=== PATIENT | female | born 1945 | race Hispanic/Latino ===

== ENCOUNTER 2017-12-12 14:52 | Inpatient (IN) | payer MEDICARE ==
[2017-12-12 15:01] VITALS: BMI 25.3
[2017-12-12] MEDS ORDERED: Levalbuterol 1.25 MG/3 ML Inhal Soln UD IH STA ×3 (15:11→16:06)
[2017-12-12 15:57] LABS: BASO # 0.01 K/mm3 (0.0-2.0); EOS # 0.2 (0.0-0.7); EOS % 0.7 % (1.5-5.0); GRAN # 19.02 (1.4-6.5); GRAN % 88.9 % (50.0-68.0); HEMOGLOBIN 15.7 g/dL (12.0-16.0); LYMPH % 4.8 % (22.0-35.0); MEAN CELL VOLUME 93.1 fl (80.0-105.0); MEAN CORPUSCULAR HGB CONC 33.3 g/dl (31.0-37.0); MEAN PLATELET VOLUME 9.4 fl (7.0-11.0); MONO # 1.2 (0.1-0.6); MONO % 5.6 % (1.0-6.0); PLATELET COUNT 369 10^3/uL (120.0-450.0); RBC 5.07 10^6/uL (3.5-6.1); WHITE BLOOD COUNT 21.4 10^3/ul (4.5-11.0)
[2017-12-12 15:58] LABS: VENOUS BLOOD GAS BASE EXCESS 2.8 mmol/L (0.0-2.0); VENOUS BLOOD GAS PO2 106 mm/Hg (30-55); VENOUS BLOOD PH 7.28 (7.32-7.43)
[2017-12-12 16:07] LABS: ALB/GLOB RATIO 1.1 (1.1-1.8); ALBUMIN 3.6 g/dL (3.0-4.8); ALT/SGPT 19 U/L (7-56); AST/SGOT 16 U/L (14-36); BLOOD UREA NITROGEN 30 mg/dL (7-21); CALCIUM 9.2 mg/dL (8.4-10.5); GFR AFRICAN-AMERICAN 59; GFR NON-AFRICAN AMERICAN 49
[2017-12-12 16:09] LABS: INR 1.33 (0.93-1.08); PARTIAL THROMBOPLASTIN TIME 27.6 Seconds (25.1-36.5); PROTHROMBIN TIME 15.3 SECONDS (9.4-12.5)
[2017-12-12 16:19] LABS: B-TYPE NATRIURETIC PEPTIDE 7220 pg/mL (0-450); TROPONIN I < 0.01 ng/mL
--- NOTE | 2017-12-12 16:23 | RAD ---
HISTORY: Shortness of breath. COMPARISON: 08/04/2016 FINDINGS: LUNGS: Bilateral lower lobe infiltrates and new finding compared to the prior study. PLEURA: No significant pleural effusion identified, no pneumothorax apparent. CARDIOVASCULAR: Pulmonary vascular congestion noted. OSSEOUS STRUCTURES: No significant abnormalities. VISUALIZED UPPER ABDOMEN: Normal. OTHER FINDINGS: None. IMPRESSION: Pulmonary vascular congestion. Lower lobe infiltrates including retrocardiac. These are new findings.
--- NOTE | 2017-12-12 16:25 | ED PDOC ---
Arrival/HPI - General Chief Complaint: Shortness Of Breath Time Seen by Provider: 12/12/17 15:09 - History of Present Illness Narrative History of Present Illness (Text): 12/12/17 16:17 72yo female with PMhx of COPD, hypothyroid, hypertension, CAD with cardiac stents bib EMS for worsening SOB x 2weeks. She denies chest pain, fever, chills , calf pain, cough, any other complaint. Past Medical History - Provider Review Nursing Documentation Reviewed: Yes - Infectious Disease Hx of Infectious Diseases: None - Cardiac Hx Cardiac Disorders: Yes Hx Hypertension: Yes - Pulmonary Hx Respiratory Disorders: Yes Hx Emphysema: Yes - Endocrine/Metabolic Hx Hypothyroidism: Yes - Musculoskeletal/Rheumatological Hx Falls: No - Psychiatric Hx Substance Use: No - Surgical History Hx Cardiac Catheterization: Yes Hx Coronary Stent: Yes - Anesthesia Hx Anesthesia: Yes Hx Anesthesia Reactions: No Hx Malignant Hyperthermia: No Family/Social History - Physician Review Nursing Documentation Reviewed: Yes Family/Social History: Unknown Family HX Smoking Status: Former Smoker Hx Alcohol Use: No Hx Substance Use: No Allergies/Home Meds Allergies/Adverse Reactions: Allergies Penicillins Allergy (Verified 08/04/16 11:16) ANAPHYLAXIS shellfish derived Allergy (Verified 08/04/16 11:16) ANAPHYLAXIS Home Medications: Home Meds Medication Instructions Recorded Confirmed Aspirin [Aspirin EC] 81 mg PO DAILY 08/04/16 12/12/17 Atorvastatin [Lipitor] 10 mg PO DIN 08/04/16 12/12/17 Carvedilol [Coreg] 25 mg PO BID 08/04/16 12/12/17 Clopidogrel [Plavix] 75 mg PO DAILY 08/04/16 12/12/17 Fluticasone/Salmeterol 250/50 1 puff IH Q12 08/04/16 12/12/17 [Advair Diskus 250/50] Levothyroxine [Levoxyl] 0.125 mg PO DAILY 08/04/16 12/12/17 Valsartan [Diovan] 320 mg PO DAILY 08/04/16 12/12/17 amLODIPine [Norvasc] 5 mg PO DAILY 08/04/16 12/12/17 hydroCHLOROthiazide [Microzide] 12.5 mg PO DAILY 08/04/16 12/12/17 Nitrofurantoin Macrocrystals 1 tab PO BID 12/12/17 12/12/17 [Macrobid] Review of Systems - Physician Review All systems were reviewed & negative as marked: Yes - Review of Systems Constitutional: Normal Eyes: Normal ENT: Normal Respiratory: SOB. absent: Cough, Sputum, Wheezing Cardiovascular: Normal Gastrointestinal: Normal Genitourinary Female: Normal Musculoskeletal: Normal Skin: Normal Neurological: Normal Endocrine: Normal Hemo/Lymphatic: Normal Psychiatric: Normal Physical Exam Vital Signs Reviewed: Yes Vital Signs Temp Pulse Resp BP Pulse Ox 12/12/17 15:08 98.2 F 108 H 18 125/75 97 Temperature: Afebrile Blood Pressure: Normal Pulse: Tachycardic Respiratory Rate: Normal Appearance: Positive for: Well-Appearing, Non-Toxic, Comfortable Pain Distress: None Mental Status: Positive for: Alert and Oriented X 3 - Systems Exam Head: Present: Atraumatic, Normocephalic Pupils: Present: PERRL Extroacular Muscles: Present: EOMI Conjunctiva: Present: Normal Mouth: Present: Moist Mucous Membranes Neck: Present: Normal Range of Motion Respiratory/Chest: Present: Good Air Exchange, Decreased Breath Sounds, Rales ( On the bases), Retracting. No: Respiratory Distress, Accessory Muscle Use, Wheezes, Rhonchi, Tachypneic Cardiovascular: Present: Regular Rate and Rhythm, Normal S1, S2. No: Murmurs Abdomen: Present: Normal Bowel Sounds. No: Tenderness, Distention, Peritoneal Signs Back: Present: Normal Inspection Upper Extremity: Present: Normal Inspection. No: Cyanosis, Edema Lower Extremity: Present: Normal Inspection, Edema (2+ bipedal edema). No: CALF TENDERNESS, Radha's Sign Neurological: Present: GCS=15, CN II-XII Intact, Speech Normal Skin: Present: Warm, Dry, Normal Color. No: Rashes Psychiatric: Present: Alert, Oriented x 3, Normal Insight, Normal Concentration Medical Decision Making - Lab Interpretations Lab Results: 12/12/17 15:35 12/12/17 15:35 Lab Results 12/12/17 15:35: Sodium 136, Chloride 97 L, Potassium 4.3, Carbon Dioxide 31, Anion Gap 13, BUN 30 H, Creatinine 1.1, Est GFR ( Amer) 59, Est GFR (Non- Af Amer) 49, Random Glucose 172 H, Calcium 9.2, Total Bilirubin 1.6 H, AST 16, ALT 19, Alkaline Phosphatase 72, Lactate Dehydrogenase 407, Total Creatine Kinase 28 L, Troponin I < 0.01, NT-Pro-B Natriuret Pep 7220 H, Total Protein 6.9 , Albumin 3.6, Globulin 3.3, Albumin/Globulin Ratio 1.1 12/12/17 15:35: pO2 106 H, VBG pH 7.28 L, VBG pCO2 67.0 H*, VBG HCO3 31.5 H, VBG Total CO2 33.6 H, VBG O2 Sat (Calc) 98.7 H, VBG Base Excess 2.8 H, VBG Potassium 4.2, Sodium 134.0, Chloride 99.0, Glucose 174 H, Lactate 1.5, FiO2 21.0, Venous Blood Potassium 4.2 12/12/17 15:35: PT 15.3 H, INR 1.33 H, APTT 27.6 12/12/17 15:35: WBC 21.4 H, RBC 5.07, Hgb 15.7, Hct 47.2, MCV 93.1, MCH 31.0, MCHC 33.3, RDW 14.0, Plt Count 369, MPV 9.4, Gran % 88.9 H, Lymph % (Auto) 4.8 L , [place] % (Auto) 5.6, Eos % (Auto) 0.7 L, Baso % (Auto) 0.0, Gran # 19.02 H, Lymph # (Auto) 1.0 L, [place] # (Auto) 1.2 H, Eos # (Auto) 0.2, Baso # (Auto) 0.01 , Neutrophils % (Manual) Pending, Lymphocytes % (Manual) Pending, Monocytes % ( Manual) Pending - RAD Interpretation Radiology Orders: 12/12/17 15:10 CHEST PORTABLE [RAD] Stat - Medication Orders Current Medication Orders: Discontinued Medications Levalbuterol HCl (Xopenex) 1.25 mg IH STAT STA Stop: 12/12/17 15:12 Last Admin: 12/12/17 15:48 Dose: 1.25 mg Levalbuterol HCl (Xopenex) 1.25 mg IH STAT STA Stop: 12/12/17 15:47 Last Admin: 12/12/17 15:48 Dose: 1.25 mg Levalbuterol HCl (Xopenex) 1.25 mg IH STAT STA Stop: 12/12/17 16:07 Methylprednisolone (Solu-Medrol) 125 mg IVP STAT STA Stop: 12/12/17 15:11 Last Admin: 12/12/17 15:48 Dose: 125 mg IVP Administration Document 12/12/17 15:48 EQ (Rec: 12/12/17 15:48 EQ [id number]) Charges for Administration # of IVP Administrations 1 Disposition/Present on Arrival - Present on Arrival Any Indicators Present on Arrival: No History of DVT/PE: No History of Uncontrolled Diabetes: No Urinary Catheter: No History of Decub. Ulcer: No History Surgical Site Infection Following: None - Disposition Have Diagnosis and Disposition been Completed?: Yes Diagnosis: COPD with acute exacerbation, Pneumonia Disposition: HOSPITALIZED Disposition Time: 16:35 Patient Plan: Admission Condition: FAIR Referrals: Renetta Weller DO [Primary Care Provider] - Follow up with primary Forms: [employer] ([place])
[2017-12-12] MEDS ORDERED: levoFLOXacin 750 mg in D5W 750 MG/150 ML BAG IVPB STA (16:28)
[2017-12-12 16:46] LABS: BAND 1 % (0-2); LYMPHOCYTE 3 % (22.0-35.0); MONOCYTE 8 % (1.0-6.0); NEUTROPHIL 88 % (50.0-70.0)
[2017-12-12] MEDS: Levalbuterol 0.63 MG/3 ML Inhal Soln UD IH SCH (19:37)
[2017-12-12] MEDS: Ipratropium 0.02% Inhal Soln (0.5 mg/2.5 ml) UD IH SCH (19:37)
--- NOTE | 2017-12-12 20:17 | CARD ---
APPROVED REPORT EKG Measurement Heart [id number] <Conclusion> Atrial fibrillation with rapid ventricular response with premature ventricular or aberrantly conducted complexes Low voltage QRS Cannot rule out Anteroseptal infarct, age undetermined T wave abnormality, nonspecific Abnormal ECG
[2017-12-12] MEDS: Linezolid 600 mg in D5W 300 ml 600 MG/300 ML BAG IVPB SCH (22:20)
[2017-12-12] MEDS: Aztreonam 1 Gm in NS 100mL 100 ML IVPB SCH (22:20)
[2017-12-12 22:48] LABS: URINE BILIRUBIN SMALL (NEGATIVE); URINE BLOOD SMALL (NEGATIVE); URINE GLUCOSE (UA) NEGATIVE (NEGATIVE); URINE LEUKOCYTE ESTERASE NEGATIVE Leu/uL (NEGATIVE); URINE PROTEIN 100 mg/dL (<30 mg/dL)
[2017-12-12 22:53] LABS: URINE APPEARANCE CLEAR (CLEAR); URINE COLOR DARK YELLOW (YELLOW)
[2017-12-12 23:12] LABS: URINE BACTERIA FEW (NEG); URINE RBC 0 - 2 /hpf (0-2); URINE WBC 0 - 2 /hpf (0-6)
--- NOTE | 2017-12-13 04:33 | CON ---
DATE: 12/12/2017 REASON FOR CONSULTATION: Shortness of breath, CHF. HISTORY OF PRESENT ILLNESS: Patient is a 72-year-old female, known case of COPD, coronary artery disease, history of stent insertion 5 years ago, history of high blood pressure, hypothyroidism, admitted with the history that since last 4 days, she is getting marked shortness of breath on minimal exertion. Before, she could walk more distance before she got shortness of breath, and now the distance got very short and her shortness of breath is getting worse. 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 Foley in [place], and about 6 weeks ago, she had an echo and the stress test, and she was reported to be normal. She denied any cough, fever, or chills. Patient's stent was inserted approximately 5 years ago. PAST MEDICAL HISTORY: Positive for CAD, stent 5 years ago, history of COPD about 4 years ago, high blood pressure also 4 years ago, history of hypothyroidism. PERSONAL HISTORY: She used to smoke one and half pack a day, stopped about 5 years ago. Denies drinking. ALLERGIES: PATIENT IS ALLERGIC TO PENICILLIN AND SHELLFISH. HOME MEDICATIONS: Patient's home medications include aspirin 81 mg daily, atorvastatin 10 mg daily, Coreg 25 mg b.i.d., Plavix 75 daily, Levoxyl 0.125 mg p.o. daily, Diovan 320 daily, amlodipine 5 daily, hydrochlorothiazide 12.5 mg p.o. daily, Macrobid 1 tablet p.o. b.i.d. REVIEW OF SYSTEMS: All the systems were reviewed; positive mentioned in the history, other were negative. PHYSICAL EXAMINATION: VITAL SIGNS: Blood pressure in the emergency room 123/71, now on the floor 107/59; respirations 18; pulse 101. Patient is afebrile. HEENT: Head is normocephalic. Eyes: Pupils normal. Conjunctivae normal. Nose and throat normal. NECK: JVP low. Carotids equal. THORAX: AP diameter normal. LUNGS: Diminished breath sounds in the lung bases. Few rales heard. CARDIOVASCULAR: S1 and S2. ABDOMEN: Soft and nontender. No organomegaly. Bowel sounds normal. EXTREMITIES: 1+ edema bilateral. LABORATORY DATA: WBC 21.4, hemoglobin 15.7, hematocrit 47.2, platelets 369. Sodium 136, potassium 4.3, BUN 30, creatinine 1.1, total bilirubin 1.6, AST and ALT normal. Troponin x2 less than 0.01. NT-proB natriuretic peptide 7220. Total protein 6.9 and albumin 3.6. EKG showed atrial fibrillation, ventricular rate around 128 per minute, apparently contributed with same low voltage, poor progression in R and V leads, nonspecific ST-T changes. Chest x-ray; bilateral lower lobe infiltrates, which is a new finding compared to previous study. Also pulmonary vascular congestion noted. Also blunting of the both costophrenic angles. DIAGNOSES: Shortness of breath, bilateral pneumonic infiltrates, mild congestive changes, blunting of both costophrenic angles suggestive of small bilateral pleural effusions, coronary artery disease, history of stent insertion, hypothyroidism, hypertension, chronic obstructive pulmonary disease, atrial fibrillation. PLAN: Patient will need anticoagulation for atrial fibrillation. Patient denies any history of prior atrial fibrillation. Patient is on Plavix and aspirin, but we will stop the Plavix and we will add Eliquis 5 mg b.i.d. The creatinine is normal. Patient will continue baby aspirin one a day; carvedilol 25 b.i.d.; aztreonam 1 g IV every 8 hour; doxycycline hyclate 100 mg p.o. every 12 hour; aspirin 81 mg daily; Lipitor mg daily; amlodipine 5 mg daily; Plavix 75 mg daily, which will be stopped and Eliquis 5 mg b.i.d. will be added; levothyroxine 125 mcg p.o. daily. We will check TSH, especially in the setting of atrial fibrillation. Xopenex hand nebulizer therapy, linezolid 600 mg IV every 12 hour, give Lasix 40 mg IV daily. We will follow with you. Tomasz Palma MD [facility]
[2017-12-13] MEDS: Aztreonam 1 Gm in NS 100mL 100 ML IVPB SCH ×3 (05:13→21:50)
[2017-12-13 07:38] LABS: BASO # 0.01 K/mm3 (0.0-2.0); BASO % 0.1 % (0.0-3.0); EOS % 0.1 % (1.5-5.0); GRAN # 17.85 (1.4-6.5); GRAN % 92.1 % (50.0-68.0); HEMOGLOBIN 14.2 g/dL (12.0-16.0); LYMPH % 4.9 % (22.0-35.0); MEAN CELL VOLUME 91.7 fl (80.0-105.0); MEAN CORPUSCULAR HEMOGLOBIN 30.9 pg (25.0-35.0); MEAN CORPUSCULAR HGB CONC 33.7 g/dl (31.0-37.0); MEAN PLATELET VOLUME 9.5 fl (7.0-11.0); MONO # 0.5 (0.1-0.6); MONO % 2.8 % (1.0-6.0); RBC 4.59 10^6/uL (3.5-6.1); RED CELL DISTRIBUTION WIDTH 13.8 % (11.5-14.5); WHITE BLOOD COUNT 19.4 10^3/ul (4.5-11.0)
[2017-12-13 07:54] LABS: BLOOD UREA NITROGEN 37 mg/dL (7-21); CALCIUM 9.1 mg/dL (8.4-10.5); GFR AFRICAN-AMERICAN > 60; GFR NON-AFRICAN AMERICAN 55; HDL CHOLESTEROL 48 mg/dL (29-60)
[2017-12-13 07:55] LABS: LDL CHOLESTEROL 41 mg/dL (0-129)
[2017-12-13] MEDS: Ipratropium 0.02% Inhal Soln (0.5 mg/2.5 ml) UD IH SCH ×3 (08:10→21:21)
[2017-12-13] MEDS: Budesonide 0.5 mg/2 ml Inhal Susp UD IH SCH ×2 (08:10→21:22)
[2017-12-13] MEDS: Levalbuterol 0.63 MG/3 ML Inhal Soln UD IH SCH ×3 (08:11→21:21)
[2017-12-13] MEDS: Levothyroxine 125 MCG TAB PO SCH ×2 (08:16→12:10)
[2017-12-13] MEDS: Potassium Chloride 10 mEq ER Tab PO SCH (08:16)
--- NOTE | 2017-12-13 09:23 | CON ---
DATE: 12/13/2017 PULMONARY CONSULTATION REFERRING PHYSICIAN: Dr. Corona. REASON FOR CONSULTATION: Chronic obstructive pulmonary disease. The patient is a 72-year-old female, with past medical history significant for advanced chronic obstructive pulmonary disease, coronary artery disease, status post cardiac stent, hypothyroidism, hypertension, who presents to [facility] with worsening shortness of breath at rest, dyspnea on exertion, and cough for the past 4 days. The patient denies sputum production. The patient also denies chest pain, coughing up of blood, or chest pain - made worse with deep respirations. There is no history of temperatures, chills or infectious exposure. There is no history of night sweats, weight loss or appetite change prior to the above events. No history of leg or calf pains. No history of syncope or diaphoresis. No history of recent travel or trauma. REVIEW OF SYSTEMS: No history of nausea, vomiting or diarrhea. No acute urinary symptoms. No new neurologic or musculoskeletal complaints. Rest of the review of systems is negative. ALLERGIES: TO PENICILLIN AND SHELLFISH. SOCIAL HISTORY: Positive for extensive tobacco usage. No alcohol. FAMILY HISTORY: No inheritable diseases. HOME MEDICATIONS: Include Levoxyl, aspirin, Microzide, Norvasc, Diovan, Plavix, Coreg, Macrobid, Advair, Lipitor. PHYSICAL EXAMINATION: GENERAL: The patient appears comfortable at rest. She is not short of breath. She is not using accessory muscles for breathing. VITAL SIGNS: Temperature is 98.0, pulse 90, respirations 18/20, blood pressure 120/80. Oxygen saturation on nasal cannula is between 91-98%. HEENT: Normocephalic, atraumatic. No JVD. CARDIOVASCULAR: Systolic ejection murmur at the lower left sternal border. Positive S3 gallop. LUNGS: Crackles at both bases. Mild bilateral rhonchi. No wheezing. EXTREMITIES: Mild edema. No cyanosis, no clubbing. Calves are nontender to palpation. GI: Abdomen is soft, nontender and nondistended. Bowel sounds are positive. SKIN: No acute rash. NEUROLOGIC: Limited at the present time. PERTINENT LABORATORY DATA: Chest x-ray was done yesterday and reviewed. There is a patchy right lower lobe infiltrate seen. There is also a questionable infiltrate noted at the left lateral base. In addition, there is a definite increase in pulmonary vascular congestion with small bilateral pleural effusions. CBC: White count 21.4, hemoglobin 15.7, hematocrit 47.2, platelets of 369,000. Complete metabolic profile: Chloride 97, BUN 30, glucose 172, bilirubin 1.6. B-type natriuretic peptide 7220. Rest of the profile is within normal limits. IMPRESSION: 1. Bibasilar pneumonia. 2. Advanced chronic obstructive pulmonary disease. 3. Acute congestive heart failure. 4. Rapid atrial fibrillation. 5. Coronary artery disease. PLAN: The patient presents to [facility] with a 4-day history of worsening pulmonary symptoms. As above, I did review the chest x-ray. The chest x-ray does show a dense infiltrate at the right base and possibly the left base. In addition, there is a definite increase in pulmonary vascular congestion with small bilateral pleural effusions. I have also reviewed the laboratory data. A significant rise in the B-type natriuretic peptide is noted. In addition, there is also a significant leukocytosis. Charles cultures have been ordered, and will be analyzed when feasible. I would continue with the antibiotic coverage as per infectious disease. I did discuss the case with Dr. Suarez this morning. I have also reviewed the consult by Dr. Palma (Cardiology). The patient is now on Eliquis, as well as intravenous Lasix. On physical exam, there is mild bronchospasm noted. I will continue with the current nebulizer treatments, and add inhaled Pulmicort this morning. The patient does state to feeling much better this morning, and is clinically improved. Additional pulmonary intervention will be based on the clinical status of the patient. Thank you very much for this pulmonary consultation. Venkat Serna MD [facility]
[2017-12-13] MEDS ORDERED: levoFLOXacin 500 mg in D5W 500 MG/100 ML BAG IVPB SCH (10:00)
[2017-12-13] MEDS ORDERED: Aspirin 325 mg EC Tablets PO SCH (10:00)
[2017-12-13] MEDS: Pantoprazole 40 mg EC Tab PO SCH (12:09)
[2017-12-13] MEDS: Linezolid 600 mg in D5W 300 ml 600 MG/300 ML BAG IVPB SCH ×2 (12:09→22:09)
--- NOTE | 2017-12-13 16:25 | PN ---
DATE: 12/13/2017 LOCATION: Room 375, bed 1. REASON FOR CONSULTATION AND FOLLOWUP: Shortness of breath, CHF, atrial fibrillation, CAD, COPD, hypertension. SUBJECTIVE: Patient admitted with shortness of breath, nausea. She states her breathing is improving. Denies chest pain or palpitations. Patient denied any history of atrial fibrillation, but EKG on admission showed atrial fibrillation. Patient follows with , a algebra teacher in [place] and the patient states a few weeks ago, she had echo and stress test done and she was told no significant abnormality was seen. PHYSICAL EXAMINATION VITAL SIGNS: Blood pressure 120/80, respirations 20, pulse 95, temperature is 98. HEENT: Head is normocephalic. Eyes: Pupils normal. Conjunctivae normal. NECK: JVP low. Carotids equal. THORAX: AP diameter normal. LUNGS: Diminished breath sounds at the bases, a few basal rales. CARDIOVASCULAR: S1 and S2 with irregular pulse possibly due to atrial fibrillation. EXTREMITIES: No clubbing, no cyanosis. LABORATORY DATA: WBC 19.4, hemoglobin 14.2, hematocrit 42.1, platelet 321,000. Sodium 135, potassium 4, BUN 37, creatinine 1.0, triglycerides 60, cholesterol 115, LDL 41, HDL 48, TSH is 0.84. Chest x-ray, lower lobe infiltrate including retrocardiac pulmonary vascular congestion, blunting of both costophrenic angles suggestive of small bilateral pleural effusion. ASSESSMENT AND PLAN: Patient was added Eliquis 5 mg b.i.d. yesterday for atrial fibrillation. Patient on aztreonam 1 g IV every 8 hour, carvedilol 25 mg b.i.d., Diovan 320 mg daily, doxycycline hyclate 100 mg p.o. every 12 hours, aspirin 81 mg daily, Eliquis 5 mg b.i.d., furosemide 40 mg IV daily, potassium 10 mEq daily, atorvastatin 10 mg daily, Norvasc 5 mg daily, Protonix 40 daily, levothyroxine 125 mcg p.o. daily, Xopenex hand nebulizer therapy, linezolid 600 mg every 12 hours. We will continue present therapy and will follow with you. Tomasz Palma MD [facility] # [id number]
--- NOTE | 2017-12-14 06:08 | HP ---
DATE OF EXAM: CHIEF COMPLAINT AND HISTORY OF PRESENT ILLNESS: This is a 72-year-old female who has come into the hospital. She was complaining of shortness of breath. She had a past medical history of hypertension, coronary artery disease with stents, hypothyroidism, COPD. She states her shortness of breath was worsening over the last two days. She has no complaints of any headaches or dizziness. She is having a cough. No dysuria or frequency. No nocturia. No weakness in the arms or the legs. She came in for further evaluation. The patient states that she was able to walk further but was having more difficulty over the last two days. 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 She had echo and stress done in the past. She states that her stent was placed about 5 years ago. PAST MEDICAL HISTORY: Coronary artery disease, COPD, hypertension. SOCIAL HISTORY: She states she smokes one and a half packs per day but she quit about 5 years ago. She denies drug use. She drinks socially. ALLERGIES: PENICILLIN AND SULFA. HOME MEDICATIONS: Has been reviewed. FAMILY HISTORY: Noncontributory. PHYSICAL EXAMINATION: VITAL SIGNS: Temperature is 98, pulse of 95, blood pressure 120/80, respirations 20, O2 saturation 91%. GENERAL: The patient lying in bed, uncomfortable, and in no acute distress. HEENT: Atraumatic and normocephalic. Anicteric sclerae. Moist mucosa. [place] conjunctivae. No oral lesions. NECK: No JVD, anterior and posterior adenopathy, thyromegaly, or bruits. CARDIOVASCULAR: S1 and S2 regular. No murmur, rubs, or gallop. LUNGS: Clear to auscultation bilaterally. No wheezes, rales, or rhonchi. ABDOMEN: Bowel sounds are positive. Soft, nontender and nondistended. No hepatosplenomegaly. No rebound and no guarding EXTREMITIES: No cyanosis, clubbing, or edema. NEUROLOGIC: No facial asymmetry. Tongue is midline. No uvula deviation. Power is 5/5 upper extremity and lower extremity. Sensation intact in upper extremity and lower extremity. PSYCHIATRIC: She is awake, alert and oriented x3. No anxiety or depression. She has normal affect. GENITOURINARY: No CVA tenderness. VASCULAR: 2+ pulses in the carotid pulses and pedal pulses. SKIN: No erythema or nodules SPINE: Shows normal curvature. LABORATORY DATA: White count is 21.4, repeat is 19.4. Rest of the labs has been reviewed. TSH was 0.84. Creatinine was 1.1. DIAGNOSTIC DATA: Patient EKG shows atrial fibrillation with rapid rate and rate of 128, QTc is 508, low voltage QRS. Chest x-ray done shows a bilateral lower lobe infiltrates. ASSESSMENT: 1. Community-acquired pneumonia. 2. Atrial fibrillation with rapid rate. 3. Coronary artery disease. 4. Hypertension. 5. Dyslipidemia. 6. Hypothyroidism. PLAN: The patient is going to be admitted to the hospital. She had a chest x-ray that showed infiltrates. She is short of breath. She has an elevated white count. The patient has been placed on IV antibiotics. She has a procalcitonin level that is pending. She is on aztreonam for antibiotics. Her blood cultures x2 have been negative. She is on valsartan for her hypertension. She is on Coreg for her coronary artery disease. She is going to continue with doxycycline for antibiotics. The patient is receiving Lasix. She is going to be followed by Cardiology. She is on Norvasc for hypertension. She is on Protonix daily. She is on Synthroid for her hypothyroidism. She is going to continue with . She is on a heart healthy diet. We will repeat her blood work tomorrow. She states she is feeling better compared to when she came into the hospital. Thom Pantoja MD
[2017-12-14] MEDS: Aztreonam 1 Gm in NS 100mL 100 ML IVPB SCH ×3 (06:49→21:17)
[2017-12-14 07:10] LABS: HEMOGLOBIN 14.2 g/dL (12.0-16.0); MEAN CELL VOLUME 92.6 fl (80.0-105.0); MEAN CORPUSCULAR HEMOGLOBIN 30.9 pg (25.0-35.0); MEAN CORPUSCULAR HGB CONC 33.3 g/dl (31.0-37.0); MEAN PLATELET VOLUME 9.8 fl (7.0-11.0); RBC 4.6 10^6/uL (3.5-6.1); RED CELL DISTRIBUTION WIDTH 13.6 % (11.5-14.5); WHITE BLOOD COUNT 23.7 10^3/ul (4.5-11.0)
[2017-12-14 07:30] LABS: ALBUMIN 3.4 g/dL (3.0-4.8); CALCIUM 9.1 mg/dL (8.4-10.5)
[2017-12-14] MEDS: Ipratropium 0.02% Inhal Soln (0.5 mg/2.5 ml) UD IH SCH ×3 (07:42→22:15)
[2017-12-14] MEDS: Levalbuterol 0.63 MG/3 ML Inhal Soln UD IH SCH ×3 (07:42→22:15)
[2017-12-14] MEDS: Budesonide 0.5 mg/2 ml Inhal Susp UD IH SCH ×2 (07:42→22:15)
[2017-12-14] MEDS: Potassium Chloride 10 mEq ER Tab PO SCH (08:40)
[2017-12-14] MEDS: Pantoprazole 40 mg EC Tab PO SCH (09:22)
[2017-12-14] MEDS: Levothyroxine 125 MCG TAB PO SCH (09:23)
[2017-12-14] MEDS: Linezolid 600 mg in D5W 300 ml 600 MG/300 ML BAG IVPB SCH ×2 (09:24→21:17)
--- NOTE | 2017-12-14 14:44 | PN ---
DATE: 12/14/2017 PULMONARY PROGRESS NOTE SUBJECTIVE: The patient was seen and examined at bedside. She is receiving nebulizer treatment with levalbuterol and budesonide. She is on intravenous antibiotics, Zyvox and Azactam. PHYSICAL EXAMINATION VITAL SIGNS: Her temperature is 99, respirations 20, blood pressure is 130/70 and pulse oximetry is 94% on nasal cannula. HEAD, EARS, NOSE AND THROAT: Normocephalic and atraumatic. CARDIOVASCULAR: S1 and S2. Positive S3 gallop. RESPIRATORY: Crackles at both bases. EXTREMITIES: Mild edema. No cyanosis. GASTROINTESTINAL: Soft, nontender. No organomegaly. : Within normal limits. SKIN: No acute skin rash. NEUROLOGIC: No focal deficits. ASSESSMENT 1. Bibasilar pneumonia. 2. Advanced chronic obstructive pulmonary disease. 3. Congestive heart failure. 4. Atrial fibrillation. PLAN: The patient is starting to improve. She is on broad antibiotic coverage as well as nebulizer treatments, inhalers and steroids. Her condition is improving. Oxygen saturation is acceptable and she is not in respiratory distress. We will continue all above measures. Terry Palmer MD [facility]
--- NOTE | 2017-12-14 20:24 | PN ---
DATE: 12/14/2017 SUBJECTIVE: The patient has no complaints of any chest pain. No shortness of breath. No headaches. PHYSICAL EXAMINATION: VITAL SIGNS: Temperature is 98.6, pulse of 85, blood pressure 130/83, respirations 20. GENERAL: The patient is lying in bed, flat, comfortable. HEENT: No oral lesion. Anicteric sclerae. Moist mucosa. NECK: No JVD, adenopathy, or thyromegaly. CARDIOVASCULAR: S1 and S2, regular. No murmurs, rubs, or gallops. LUNGS: Clear to auscultation bilaterally. No wheeze, rales, or rhonchi. ABDOMEN: Bowel sounds are positive, soft, nontender and nondistended. EXTREMITIES: No cyanosis, clubbing or edema. LABORATORY DATA: White count of 23.7, hemoglobin of 14.2. Creatinine is 1.1. ASSESSMENT: 1. Community-acquired pneumonia. 2. Atrial fibrillation. 3. Coronary artery disease. 4. Hypertension. 5. Dyslipidemia. 6. Hypothyroidism. PLAN: The patient is currently comfortable. She had blood cultures x2, which were negative. She is on aztreonam for antibiotics. The patient is receiving Diovan for hypertension. She is going to continue with aspirin. The patient is on Eliquis for the atrial fibrillation. She is going to be on Lasix daily. The patient is on Norvasc for hypertension. She is on Synthroid for hypothyroidism. She is going to have another chest x-ray done tomorrow. We will repeat the patient's blood work. Thom Pantoja MD
--- NOTE | 2017-12-14 21:23 | PN ---
DATE: 12/14/2017 SUBJECTIVE: The patient is in bed, in no acute distress. PHYSICAL EXAMINATION: VITAL SIGNS: Temperature is 98, blood pressure is 130/70, respiratory rate of 16. HEENT: Unremarkable. NECK: Supple. LUNGS: Have decreased breath sounds. HEART: Normal S1, S2. ABDOMEN: Soft. LABORATORY DATA: Reveals a white count of 23,000, hemoglobin of 14. BUN of 43, creatinine of 1.1. Procalcitonin 0.5. Microbiology is noted. ASSESSMENT AND PLAN: This is a 72-year-old female who was seen early this morning in room 375, bed 1 with sepsis and community-acquired pneumonia in a patient who has history of cardiac disease, cardiac catheterization and stents, hyperlipidemia, hypertension, hypothyroidism, chronic obstructive lung disease, emphysema, negative blood cultures at this time, leukocytosis with a procalcitonin that is elevated at 0.5, probable bacterial, community-acquired pneumonia sepsis. Awaiting for urine for Legionella antigen. Awaiting for the sputum culture. SHE IS ALLERGIC TO PENICILLIN. Currently, on Azactam and Zyvox or doxycycline. We will follow with you. jC Suarez MD
[2017-12-15] MEDS: Aztreonam 1 Gm in NS 100mL 100 ML IVPB SCH ×3 (05:37→22:06)
--- NOTE | 2017-12-15 06:29 | PN ---
DATE: 12/14/2017 LOCATION: The patient in room 375, bed 1. REASON FOR CONSULTATION: Followup shortness of breath, CHF, atrial fibrillation, CAD, COPD, hypertension. SUBJECTIVE: The patient was admitted with shortness of breath, now the shortness of breath is improving. The patient also found to have new onset atrial fibrillation and her palpitation is also improved. The patient follows with the [employer] in [place] and according to the patient, a few weeks ago, she had echo and stress test and the patient was told no significant abnormality. PHYSICAL EXAMINATION: VITAL SIGNS: Blood pressure 110/77; respirations 20; pulse 101, but monitor show heart rate in the 90's; temperature 97.8. HEENT: Head is normocephalic. Eyes: Pupils normal. Conjunctivae normal. Nose and throat normal. NECK: JVP low. Carotids equal. THORAX: AP diameter normal. CARDIOVASCULAR: S1 and S2. LUNGS: Few rales. ABDOMEN: Soft, nontender, no organomegaly. EXTREMITIES: No clubbing, no cyanosis. LABORATORY DATA: WBC 23.7, hemoglobin 14.2, hematocrit 42.6, platelets 360. Sodium 136, potassium 3.8, BUN 43, creatinine 1.1. Calcium, AST, ALT, total protein, albumin normal. TSH 0.84. DIAGNOSES: Congestive heart failure with vascular congestion and blunting on both costophrenic angles. Also, the patient has lower lobe infiltrate suggestive of pneumonia, new onset atrial fibrillation, hypothyroidism, hypertension, chronic obstructive pulmonary disease, coronary artery disease status post stent insertion. PLAN: The patient is on Coreg 25 b.i.d.; Diovan 320 daily; doxycycline hyclate 100 mg p.o. every 12 hours; aspirin 81 daily; Eliquis 5 mg b.i.d., since BUN is 43, we will cut back Eliquis to 2.5 b.i.d.; furosemide 40 IV daily, atorvastatin 10 daily, amlodipine 5 daily, Protonix 40 daily, levothyroxine 125 mcg p.o. daily, linezolid 600 mg IV every 12 hours. We will repeat chest x-ray in the morning and we will follow with you. Tomasz Palma MD [facility] # [id number]
[2017-12-15 06:33] VITALS: O2SAT 94
[2017-12-15 07:11] LABS: HEMOGLOBIN 13.6 g/dL (12.0-16.0); MEAN CELL VOLUME 93.5 fl (80.0-105.0); MEAN CORPUSCULAR HEMOGLOBIN 30.4 pg (25.0-35.0); MEAN CORPUSCULAR HGB CONC 32.5 g/dl (31.0-37.0); MEAN PLATELET VOLUME 9.7 fl (7.0-11.0); RBC 4.48 10^6/uL (3.5-6.1); WHITE BLOOD COUNT 13.7 10^3/ul (4.5-11.0)
[2017-12-15 07:24] LABS: ALBUMIN 3.1 g/dL (3.0-4.8); ALT/SGPT 29 U/L (7-56); AST/SGOT 16 U/L (14-36); BLOOD UREA NITROGEN 42 mg/dL (7-21); CALCIUM 8.6 mg/dL (8.4-10.5); GFR AFRICAN-AMERICAN > 60; GFR NON-AFRICAN AMERICAN 55
[2017-12-15] MEDS: Levalbuterol 0.63 MG/3 ML Inhal Soln UD IH SCH ×3 (08:14→22:20)
[2017-12-15] MEDS: Ipratropium 0.02% Inhal Soln (0.5 mg/2.5 ml) UD IH SCH ×3 (08:14→22:20)
[2017-12-15] MEDS: Budesonide 0.5 mg/2 ml Inhal Susp UD IH SCH ×2 (08:15→22:20)
--- NOTE | 2017-12-15 08:19 | PQF CHF ---
This form is a permanent part of the medical record Clarification of your documentation is requested to better reflect the severity of illness and intensity of treatment of your patient. Indicators present Dx of CHF requires further clarification as to Acuity & Type POA. Please document in your notes to best reflect severity of illness & intensity of tx. [x Diagnosis of CHF and/or history of CHF [x] BNP > 200 [x] Imaging Finding of Pulmonary Edema /Pleural Effusions [] Fluid/Volume Overload [] Pitting edema [] Ejection Fraction < 40% (Indicative of Systolic Heart Failure) [] Ejection Fraction > 40% (Indicative of Diastolic Heart Failure) [x] Dyspnea / Orthopenea / Paroxysmal Nocturnal Dyspnea [] Other: Location in the medical record that reflects the above clinical findings: [x] Card PN- 12/13, 12/15 Treatment Provided: [] IV Lasix PHYSICIAN'S RESPONSE Based on your medical judgment of the clinical indicators outlined above, are you treating this patient for a known or suspected: [] Acute CHF [] Systolic [] Diastolic [] Combined [] Chronic CHF [] Systolic [] Diastolic [] Combined [] Acute on Chronic CHF []Systolic [] Diastolic [] Combined [] CHF due hypertension [] Acute systolic []Chronic systolic [] Acute/ chronic systolic [] Other, please indicate: [] [] If Unable to Determine, please check the box, sign and date. Present On Admission (POA) Indicator: [] Present at the time of admission [] Not present at the time of admission [] Clinically Undetermined In responding to this query, please exercise your independent professional judgment. The fact that a question is asked does not imply that any particular answer is desired or expected. Thank you for your clarification on this documentation. If you have any questions please call:[ ] [phone] * Thank you, [ ] Monse Foster RN CDS facilities operations technician [facility]
[2017-12-15] MEDS: Potassium Chloride 10 mEq ER Tab PO SCH (08:46)
--- NOTE | 2017-12-15 08:46 | PN ---
DATE: 12/15/2017 PULMONARY NOTE SUBJECTIVE: The patient appears quite comfortable this morning. She is not short of breath at rest. PHYSICAL EXAMINATION: VITAL SIGNS: Temperature is 98.4, pulse is 74, respirations 19, blood pressure 114/59. Oxygen saturation on nasal cannula is 94%. HEENT: Normocephalic, atraumatic. No JVD. CARDIOVASCULAR: Systolic ejection murmur at the lower left sternal border. Positive S3 gallop. LUNGS: Less crackles at the bases. Much less rhonchi. No wheezing. EXTREMITIES: Less edema. No cyanosis. No clubbing. Calves are nontender to palpation. GI: Abdomen is soft, nontender and nondistended. Bowel sounds are positive. SKIN: No acute rash. NEUROLOGIC: Limited at the present time. IMPRESSION: 1. Bibasilar pneumonia. 2. Advanced chronic obstructive pulmonary disease. 3. Acute congestive heart failure. 4. Rapid atrial fibrillation. 5. Coronary artery disease. PLAN: The patient appears much more comfortable this morning. She is not short of breath at rest. She does state to feeling much better overall. On physical exam, there is much less bronchospasm noted. In addition, the alveolar-arterial gradient is also less. I will continue with the current nebulizer treatments and inhaled steroids for now. The patient remains on intravenous antibiotics - as per Infectious Disease. There are no temperatures noted. There is a persistent leukocytosis. I would continue with the treatment for congestive heart failure and atrial fibrillation - as per Cardiology. Input by Dr. Palma is noted. A repeat chest x-ray has been ordered. I will check that when feasible. Clinical status of the patient is definitely improved - compared to the initial presentation. She does remain guarded overall. I will discuss the above with the attending physician. Venkat Serna MD [facility]
--- NOTE | 2017-12-15 09:56 | CON ---
DATE: 12/13/2017 LOCATION: The patient was seen earlier this morning in room 375. CHIEF COMPLAINT: Shortness of breath and cough times several days. HISTORY OF PRESENT ILLNESS: This is a 72-year-old female who was seen early this morning with history of end-stage chronic obstructive lung disease, coronary artery disease, history of angioplasty, hypertension, hyperlipidemia, who was brought in with shortness of breath x2 weeks; however, she states that shortness of breath has gotten worse in the past several days. She has got low-grade fevers. No chills. She does have cough, nonproductive. No chest pain and no abdominal pain, diarrhea or constipation. No bright red blood per rectum. No melena. PAST MEDICAL HISTORY: Significant for hypothyroidism, end-stage COPD, coronary artery disease, hypertension, hyperlipidemia. PAST SURGICAL HISTORY: Significant for angioplasty. ALLERGIES: THE PATIENT IS ALLERGIC TO PENICILLIN. MEDICATIONS AT HOME: Include aspirin, Lipitor, Coreg, Plavix, inhalers, levothyroxine, Norvasc and hydrochlorothiazide. PHYSICAL EXAMINATION VITAL SIGNS: Patient in bed, in no acute distress; however, appearing weak with a temperature of 97.7, heart rate is 98 to 109, respiratory rate of 22, blood pressure 94/59. HEENT: Examination is unremarkable. NECK: Supple. LUNGS: Have decreased breath sounds. HEART: Normal S1, S2. ABDOMEN: Soft, nontender. LABORATORY DATA: Examination reveals that the patient's white count is reported to be 21,000, hemoglobin of 15, platelets of 369,000, 88% granulocytosis, coagulation is noted and chemistry reveals a BUN of 30, creatinine of 1.1. Elevated procalcitonin is 0.50. Sugar is elevated at 172. Urinalysis was noted. Chest x-ray is reported to be positive for infiltrates. Dr. Serna's consultation reviewed. is pending. Blood cultures are recorded to be, there are no growth at 24 hours and sputum cultures are ordered, but not corrected. ASSESSMENT AND PLAN: This 72-year-old female with end-stage chronic obstructive lung disease, coronary artery disease, hypertension, hyperlipidemia, hypothyroidism, admitted with tachycardia, dyspnea, infiltrates, leukocytosis, ALLERGIC TO PENICILLIN, sepsis, bilateral community-acquired pneumonia. I will treat the patient with Zyvox, and doxycycline. Pending final cultures, sputum cultures, and clinical response. We will follow with WBC. The patient does have an elevated procalcitonin. Case discussed with Dr. Serna early this morning. We will follow with you. Cj Suarez MD
[2017-12-15] MEDS: Pantoprazole 40 mg EC Tab PO SCH (10:53)
[2017-12-15] MEDS: Levothyroxine 125 MCG TAB PO SCH (10:53)
[2017-12-15] MEDS: Linezolid 600 mg in D5W 300 ml 600 MG/300 ML BAG IVPB SCH ×2 (10:55→23:15)
--- NOTE | 2017-12-15 12:13 | RAD ---
HISTORY: COMPARISON: 12/12/2017 TECHNIQUE: Chest PA and lateral FINDINGS: LINES AND TUBES: None. LUNG AND PLEURA: The lungs are hyperinflated and there is peribronchial thickening with chronic changes in both lungs. There are fibrotic changes in both upper lobes. There is a left retrocardiac opacity. There are bilateral pleural effusions, larger on the left. HEART AND MEDIASTINUM: The heart is not enlarged. The hilar and mediastinal contours are within normal limits. SKELETAL STRUCTURES: The bony structures are within normal limits for the patient's age. VISUALIZED UPPER ABDOMEN: Normal. OTHER FINDINGS: None. IMPRESSION: Left lower lobe opacity may represent atelectasis or pneumonia. Small bilateral pleural effusions. No significant interval change. Background of COPD.
--- NOTE | 2017-12-15 16:14 | PN ---
DATE: 12/15/2017 SUBJECTIVE: The patient has no complaints of any chest pain. No shortness of breath. No headaches. PHYSICAL EXAMINATION: VITAL SIGNS: Temperature is 98.4, pulse is 74, blood pressure is 114/59, and respirations 19. GENERAL: The patient is lying in bed, flat, comfortable. HEENT: No oral lesion. Anicteric sclerae. Moist mucosa. NECK: No JVD, adenopathy, or thyromegaly. CARDIOVASCULAR: S1 and S2, regular. No murmurs, rubs, or gallops. LUNGS: Clear to auscultation bilaterally. No wheeze, rales, or rhonchi. ABDOMEN: Bowel sounds are positive, soft, nontender and nondistended. EXTREMITIES: No cyanosis, clubbing or edema. LABORATORY DATA: White count of 13.7, hemoglobin 13.6, creatinine is 1. ASSESSMENT: 1. Community-acquired pneumonia. 2. Atrial fibrillation. 3. Coronary artery disease. 4. Hypertension. 5. Dyslipidemia. 6. Hypothyroidism. PLAN: The patient is currently comfortable. She is following with ID as well as Cardiology and Pulmonary. Repeat chest x-ray has been ordered. I reviewed the notes of Dr. Serna and Dr. Palma as well as Dr. Suarez. The patient is on losartan for hypertension. She is on Norvasc for hypertension. She is on Synthroid for hypothyroidism. The patient is receiving linezolid. She is currently comfortable. I will get Physical Therapy to evaluate the patient. Once cleared, the patient can probably be discharged home. She has blood cultures that were negative. Thom Pantoja MD
--- NOTE | 2017-12-15 17:35 | CP.PCM.PN ---
Subjective - Date & Time of Evaluation Date of Evaluation: 12/15/17 Time of Evaluation: 09:10 - Subjective Subjective: No fevers, not in distress, afebrile. Objective - Vital Signs/Intake and Output Vital Signs (last 24 hours): Temp Pulse Resp BP Pulse Ox 98.2 F 75 20 111/72 94 L 12/15/17 12:00 12/15/17 17:24 12/15/17 12:00 12/15/17 17:24 12/15/17 06:00 Intake and Output: 12/15/17 12/15/17 06:59 18:59 Intake Total 1100 840 Output Total 600 Balance 500 840 - Medications Medications: Current Medications Amlodipine Besylate (Norvasc) 5 mg PO DAILY [facility] Last Admin: 12/15/17 12:10 Dose: 5 mg Apixaban (Eliquis) 2.5 mg PO BID [facility] PRN Reason: Protocol Last Admin: 12/15/17 17:24 Dose: 2.5 mg Aspirin (Ecotrin) 81 mg PO DAILY [facility] Last Admin: 12/15/17 10:53 Dose: 81 mg Atorvastatin Calcium (Lipitor) 10 mg PO DIN [facility] Last Admin: 12/15/17 17:24 Dose: 10 mg Budesonide (Pulmicort Respules) 0.5 mg IH [id number] [facility] Last Admin: 12/15/17 08:15 Dose: 0.5 mg Carvedilol (Coreg) 25 mg PO BID [facility] Last Admin: 12/15/17 17:24 Dose: 25 mg Doxycycline Hyclate (Doryx) 100 mg PO Q12 [facility] PRN Reason: Protocol Last Admin: 12/15/17 10:53 Dose: 100 mg Furosemide (Lasix) 40 mg IV DAILY [facility] Last Admin: 12/15/17 10:53 Dose: 40 mg Aztreonam (Azactam 1 Gm) 100 mls @ 100 mls/hr IVPB Q8 [facility] PRN Reason: Protocol Stop: 12/19/17 22:01 Last Admin: 12/15/17 13:35 Dose: 100 mls/hr Linezolid (Zyvox 600mg/300ml D5w) 600 mg in 300 mls @ 200 mls/hr IVPB Q12 [facility] PRN Reason: Protocol Stop: 12/19/17 22:01 Last Admin: 12/15/17 10:55 Dose: 200 mls/hr Ipratropium [place] (Atrovent) 0.5 mg IH TIDRESP [facility] Last Admin: 12/15/17 13:34 Dose: 0.5 mg Levalbuterol HCl (Xopenex) 0.63 mg IH TIDRESP [facility] Last Admin: 12/15/17 13:34 Dose: 0.63 mg Levothyroxine Sodium (Synthroid) 125 mcg PO DAILY [facility] Last Admin: 12/15/17 10:53 Dose: 125 mcg Pantoprazole Sodium (Protonix Ec Tab) 40 mg PO DAILY [facility] Last Admin: 12/15/17 10:53 Dose: 40 mg Potassium Chloride (Klor-Con 10) 10 meq PO BRK [facility] Last Admin: 12/15/17 08:46 Dose: 10 meq Valsartan (Diovan) 320 mg PO DAILY [facility] Last Admin: 12/15/17 12:10 Dose: 320 mg - Labs Labs: 12/15/17 06:30 12/15/17 06:30 PT 15.3 SECONDS (9.4-12.5) H 12/12/17 15:35 INR 1.33 (0.93-1.08) H 12/12/17 15:35 APTT 27.6 Seconds (25.1-36.5) 12/12/17 15:35 - Constitutional Appears: Chronically Ill - Head Exam Head Exam: NORMAL INSPECTION - Neck Exam Neck Exam: absent: Meningismus - Respiratory Exam Respiratory Exam: Decreased Breath Sounds - Cardiovascular Exam Cardiovascular Exam: +S1, +S2 - GI/Abdominal Exam GI & Abdominal Exam: Soft. absent: Tenderness Assessment and Plan - Assessment and Plan (Free Text) Plan: Assessment Sepsis due to bacterial community-acquired pneumonia CAD S/P PCI hypothyroidism COPD Plan Continue Zyvox, Azactam and Doxycycline (Day 3) to complete 5-7 days of therapy
--- NOTE | 2017-12-15 21:21 | PN ---
DATE: 12/15/2017 REASON FOR CONSULTATION AND FOLLOWUP: Shortness of breath, CHF, atrial fibrillation, CAD, COPD, and hypertension. SUBJECTIVE: The patient denies any chest pain, shortness of breath, any palpitation. OBJECTIVE: GENERAL: Not in apparent distress. VITAL SIGNS: Temperature afebrile, heart rate 91, blood pressure 110/64. HEENT: PERRLA. Extraocular muscles intact. NECK: Supple. No carotid bruit or thyromegaly. CHEST: Clear to auscultation. HEART: S1 and S2 regular. ABDOMEN: Soft. EXTREMITIES: Clubbing and cyanosis negative. Trace pedal edema. IMPRESSION: Bibasilar pneumonia, acute bronchitis, atrial fibrillation with rapid rate, now rate is well controlled, being followed by Dr. Hieu Keane and the patient states that recently she had a stress test and echocardiogram. She was told it was negative. Hypothyroidism, hypertension, chronic bronchitis, chronic obstructive pulmonary disease. RECOMMENDATION: Continue Coreg, continue Eliquis, continue losartan, aspirin, Lasix, atorvastatin, amlodipine. Rate is well controlled with Coreg. Repeat chest x-ray done today. She has left lower opacity atelectasis and pneumonia. No significant interval change. Continue broad-spectrum antibiotic, continue gentle diuretics. Follow up the lab in the morning. Thank you, Dr. Corona, for providing us the opportunity in taking care of the patient, Martha Sheridan. We will follow with you. Repeat the lab in the morning with magnesium and phosphate level too. Tomasz Rai MD
[2017-12-15 22:17] VITALS: TEMP 97.6
[2017-12-16] MEDS: Aztreonam 1 Gm in NS 100mL 100 ML IVPB SCH ×2 (05:39→15:39)
[2017-12-16 06:51] LABS: ALT/SGPT 22 U/L (7-56); AST/SGOT 14 U/L (14-36); BLOOD UREA NITROGEN 34 mg/dL (7-21); CALCIUM 9.1 mg/dL (8.4-10.5); GFR AFRICAN-AMERICAN > 60; GFR NON-AFRICAN AMERICAN 55
--- NOTE | 2017-12-16 08:06 | PN ---
DATE: 12/16/2017 PULMONARY NOTE SUBJECTIVE: The patient appears very comfortable this morning. She is not short of breath at rest. PHYSICAL EXAMINATION: VITAL SIGNS: (Last noted in the computer): Temperature is 97.6, pulse 91, respirations 19, blood pressure 100/67. Oxygen saturation on nasal cannula is 95%. HEENT: Normocephalic, atraumatic. NECK: No JVD. CARDIOVASCULAR: Systolic ejection murmur at the lower left sternal border. Positive S3 gallop. LUNGS: Less crackles at the bases. Much less rhonchi. No wheezing. EXTREMITIES: Less edema. No cyanosis, no clubbing. Calves are nontender to palpation. GI: Abdomen is soft, nontender, nondistended. Bowel sounds are positive. SKIN: No acute rash. NEUROLOGIC: Exam limited at the present time. PERTINENT LABORATORY DATA: Chest x-ray was repeated yesterday and reviewed. Compared to the previous film, there is a definite decrease in the patchy right lower lobe infiltrate. There is also a decrease in pulmonary vascular congestion. Small pleural effusions remain. CBC: 12/15/2017: White count 13.7, hemoglobin 13.6, hematocrit 41.9, platelets of 355,000. IMPRESSION: 1. Bibasilar pneumonia. 2. Advanced chronic obstructive pulmonary disease. 3. Acute congestive heart failure. 4. Rapid atrial fibrillation. 5. Coronary artery disease. Plan: The patient appears comfortable this morning. She is not short of breath at rest. She does state to feeling much, much better overall. On physical exam, there is certainly less bronchospasm noted. In addition, the alveolar-arterial gradient is also less. I will continue the current nebulizer treatments and inhaled steroids for now. I did review the last chest x-ray-above. There appears to be a definite decrease in the right lower lobe patchy infiltrate. There is also a decrease in pulmonary vascular congestion. Small pleural effusions remain. I would continue with the antibiotic coverage as per Infectious Disease. Input by Dr. Maurice is noted. There are no temperatures noted. The leukocytosis is now resolving. I would continue with the treatment for congestive heart failure and cardiac arrhythmias-as per Cardiology. Inputs are noted. Clinical status of the patient is significantly improved overall. Patient is advised to be out of bed as much as possible. I will discuss the above with the attending physician. Venkat Serna MD [facility] # [id number] [facility]
[2017-12-16] MEDS: Ipratropium 0.02% Inhal Soln (0.5 mg/2.5 ml) UD IH SCH ×2 (08:12→13:45)
[2017-12-16] MEDS: Levalbuterol 0.63 MG/3 ML Inhal Soln UD IH SCH ×2 (08:12→13:45)
[2017-12-16] MEDS: Budesonide 0.5 mg/2 ml Inhal Susp UD IH SCH (08:12)
[2017-12-16 08:37] VITALS: BP 121/77; PULSE 80; RESP 18
[2017-12-16] MEDS: Potassium Chloride 10 mEq ER Tab PO SCH (10:42)
[2017-12-16] MEDS: Pantoprazole 40 mg EC Tab PO SCH (10:42)
[2017-12-16] MEDS: Levothyroxine 125 MCG TAB PO SCH (10:43)
[2017-12-16] MEDS: Linezolid 600 mg in D5W 300 ml 600 MG/300 ML BAG IVPB SCH (10:44)
--- NOTE | 2017-12-16 12:19 | CP.PCM.PN ---
Subjective - Date & Time of Evaluation Date of Evaluation: 12/16/17 Time of Evaluation: 10:30 - Subjective Subjective: Breathing better, doing her physical therapy well enough, no fevers. Objective - Vital Signs/Intake and Output Vital Signs (last 24 hours): Temp Pulse Resp BP Pulse Ox 97.6 F 80 18 121/77 94 L 12/16/17 08:36 12/16/17 08:36 12/16/17 08:36 12/16/17 08:36 12/16/17 08:36 Intake and Output: 12/16/17 12/16/17 06:59 18:59 Intake Total 120 Balance 120 - Medications Medications: Current Medications Amlodipine Besylate (Norvasc) 5 mg PO DAILY [facility] Last Admin: 12/15/17 12:10 Dose: 5 mg Apixaban (Eliquis) 2.5 mg PO BID [facility] PRN Reason: Protocol Last Admin: 12/15/17 17:24 Dose: 2.5 mg Aspirin (Ecotrin) 81 mg PO DAILY [facility] Last Admin: 12/15/17 10:53 Dose: 81 mg Atorvastatin Calcium (Lipitor) 10 mg PO DIN [facility] Last Admin: 12/15/17 17:24 Dose: 10 mg Budesonide (Pulmicort Respules) 0.5 mg IH [id number] [facility] Last Admin: 12/16/17 08:12 Dose: 0.5 mg Carvedilol (Coreg) 25 mg PO BID [facility] Last Admin: 12/15/17 17:24 Dose: 25 mg Doxycycline Hyclate (Doryx) 100 mg PO Q12 [facility] PRN Reason: Protocol Last Admin: 12/15/17 22:06 Dose: 100 mg Furosemide (Lasix) 40 mg IV DAILY [facility] Last Admin: 12/15/17 10:53 Dose: 40 mg Aztreonam (Azactam 1 Gm) 100 mls @ 100 mls/hr IVPB Q8 [facility] PRN Reason: Protocol Stop: 12/19/17 22:01 Last Admin: 12/16/17 05:39 Dose: 100 mls/hr Linezolid (Zyvox 600mg/300ml D5w) 600 mg in 300 mls @ 200 mls/hr IVPB Q12 [facility] PRN Reason: Protocol Stop: 12/19/17 22:01 Last Admin: 12/15/17 23:15 Dose: 200 mls/hr Ipratropium [place] (Atrovent) 0.5 mg IH TIDRESP [facility] Last Admin: 12/16/17 08:12 Dose: 0.5 mg Levalbuterol HCl (Xopenex) 0.63 mg IH TIDRESP [facility] Last Admin: 12/16/17 08:12 Dose: 0.63 mg Levothyroxine Sodium (Synthroid) 125 mcg PO DAILY [facility] Last Admin: 12/15/17 10:53 Dose: 125 mcg Pantoprazole Sodium (Protonix Ec Tab) 40 mg PO DAILY [facility] Last Admin: 12/15/17 10:53 Dose: 40 mg Potassium Chloride (Klor-Con 10) 10 meq PO BRK [facility] Last Admin: 12/15/17 08:46 Dose: 10 meq Valsartan (Diovan) 320 mg PO DAILY [facility] Last Admin: 12/15/17 12:10 Dose: 320 mg - Labs Labs: 12/15/17 06:30 12/16/17 06:19 PT 15.3 SECONDS (9.4-12.5) H 12/12/17 15:35 INR 1.33 (0.93-1.08) H 12/12/17 15:35 APTT 27.6 Seconds (25.1-36.5) 12/12/17 15:35 - Constitutional Appears: Non-toxic, Chronically Ill - Head Exam Head Exam: NORMAL INSPECTION - Respiratory Exam Respiratory Exam: Decreased Breath Sounds - Cardiovascular Exam Cardiovascular Exam: +S1, +S2 - GI/Abdominal Exam GI & Abdominal Exam: Soft. absent: Tenderness Assessment and Plan - Assessment and Plan (Free Text) Plan: Assessment Sepsis due to bacterial community-acquired pneumonia, slowly improving CAD S/P PCI hypothyroidism COPD Plan Continue Zyvox, Azactam and Doxycycline (Day 4) to complete 5-7 days of therapy
--- NOTE | 2017-12-16 23:20 | DS ---
DISCHARGE DIAGNOSES: 1. Community-acquired pneumonia. 2. Atrial fibrillation. 3. Coronary artery disease. 4. Hypertension. 5. Dyslipidemia. 6. Hypothyroidism. 7. Leukocytosis. HOSPITAL COURSE: The patient was admitted with community-acquired pneumonia. She also has atrial fibrillation. Pulmonary consultation Dr. Serna, Cardiology Dr. Palma and ID consultation Dr. Suarez requested during hospitalization. Her general condition improved, treated with IV antibiotics for pneumonia, heart rate controlled with current medications. She is being transferred to transitional care unit for deconditioning and gait improvement. PHYSICAL EXAMINATION ON DISCHARGE: VITAL SIGNS: Temperature 98.7, heart rate 75 per minute, blood pressure 114/60, respiratory rate 18 per minute. HEENT: Normal. Pallor positive. NECK: No lymphadenopathy. CARDIOVASCULAR: S1 and S2 normal. No murmur. No gallop. ABDOMEN: Soft, nontender. No hepatosplenomegaly. EXTREMITIES: No edema. SKIN: No petechiae. No rash. SPINE: Nontender. LABORATORY DATA: White count 13.7, hemoglobin 13.6, creatinine 1. DISPOSITION: Discharge to transitional care unit. CONDITION ON DISCHARGE: Stable. DISCHARGE MEDICATIONS: Continue on current medications. DIET: Heart healthy diabetic diet. Labs ordered for the morning, CBC, BMP. Time spent preparing discharge and coordinating care is 60 minutes. Jane Corona MD [facility]
--- NOTE | 2017-12-17 07:31 | PN ---
DATE: REASON FOR CONSULTATION AND FOLLOWUP: Shortness of breath, CHF, atrial fibrillation, CAD, COPD, hypertension. SUBJECTIVE: Patient denies any chest pain, shortness of breath, any palpitations. OBJECTIVE GENERAL: Not in apparent distress. VITAL SIGNS: Temperature afebrile, heart rate 80, blood pressure 120/70. HEENT: PERRLA. Extraocular motions intact. NECK: Supple. No carotid bruit or thyromegaly. CHEST: Clear to auscultation. HEART: S1 and S2 regular. ABDOMEN: Soft. EXTREMITIES: Clubbing and cyanosis negative. LABORATORY DATA: Blood workup as follows: WBC , hemoglobin 13, hematocrit 41.9, platelet count 355. Chemistry shows sodium 130, potassium 4, chloride 99, carbon dioxide 34, anion gap of 10, BUN 30, creatinine 1. IMPRESSION: Bilateral pneumonia; acute bronchitis,;atrial fibrillation with rapid rate, now rate is well controlled. Patient is being followed by Hieu Keane and the patient states that she had recently noninvasive workup including stress test and echo and was told negative. History of hypothyroidism, hypertension, chronic bronchitis, chronic obstructive pulmonary disease. Left lower lobe opacity suggestive of atelectasis and pneumonia, a small bilateral pleural effusions, no significant interval change. RECOMMENDATIONS: As mentioned, continue Eliquis. Continue antibiotics. Continue losartan. Continue aspirin. Continue amlodipine. Rate is well controlled. Continue broad-spectrum antibiotics. Repeat chest x-ray in the morning. We will follow with you. Thank you Dr. Corona for providing us the opportunity in taking care of the patient, Martha Sheridan. Tomasz Rai MD
--- NOTE | 2017-12-17 11:25 | PQF SEPSIS ---
12/17/17 Dr. Corona, " Sepsis due to bacterial community-acquired pneumonia " is documented by ID consultants on consult of 12/13 and progress notes of 12/14, 12/15, 12/16. You do not document this on your discharge summary, however. Do you agree, disagree, undetermined with systemic sepsis for this patient? If you agree, was sepsis present on admission? Thank you. Clarification of your documentation is requested to better reflect the severity of illness and intensity of treatment of your patient. Indicators present [] Temp < 96.8 or > 100.4 [X ] WBC count > 12,000/mm3 or <000/mm3 or 10% immature neutrophils [] Heart Rate > 90 [] Respiratory Rate > 20 [X] Fever or hypothermia [] Chills [] Positive blood cultures [] Hypotension [] Metabolic acidosis (Elevated lactate level, anion gap or reduced blood pH) [] Acute confusion /Altered Mental Status [] Shock [] Other: [] Location in the medical record that reflects the above clinical findings: [] Treatment Provided: [] PHYSICIAN'S RESPONSE Based on your medical judgment of the clinical indicators outlined above, are you treating this patient for a known or suspected: [] Sepsis / Septicemia Please specify organism if known [] [X] SIRS (Systemic Inflammatory Response Syndrome) [] Severe Sepsis (Sepsis with Associated Organ Dysfunction) [] Fever of Unknown Origin [] Other, please indicate: [] [] If Unable to Determine, please check the box, sign and date. Present On Admission (POA) Indicator: [X] Present at the time of admission [] Not present at the time of admission [] Clinically Undetermined In responding to this query, please exercise your independent professional judgment. The fact that a question is asked does not imply that any particular answer is desired or expected. Thank you for your clarification on this documentation. If you have any questions please call:[ ] * Thank you, [ ] vault clerk HYACINTH
--- NOTE | 2017-12-17 11:26 | PQF CHF ---
12/17/17 Dr. Palma, Please see below. (Previous query form signed only.) Thank you. Clarification of your documentation is requested to better reflect the severity of illness and intensity of treatment of your patient. Indicators present Dx of CHF requires further clarification as to Acuity & Type POA. Please document in your notes to best reflect severity of illness & intensity of tx. [x Diagnosis of CHF and/or history of CHF [x] BNP > 200 [x] Imaging Finding of Pulmonary Edema /Pleural Effusions [] Fluid/Volume Overload [] Pitting edema [] Ejection Fraction < 40% (Indicative of Systolic Heart Failure) [] Ejection Fraction > 40% (Indicative of Diastolic Heart Failure) [x] Dyspnea / Orthopenea / Paroxysmal Nocturnal Dyspnea [] Other: Location in the medical record that reflects the above clinical findings: [x] Card PN- 12/13, 12/15 Treatment Provided: [] IV Lasix PHYSICIAN'S RESPONSE Based on your medical judgment of the clinical indicators outlined above, are you treating this patient for a known or suspected: [] Acute CHF [] Systolic [] Diastolic [] Combined [] Chronic CHF [] Systolic [] Diastolic [] Combined [] Acute on Chronic CHF []Systolic [] Diastolic [] Combined [] CHF due hypertension [] Acute systolic []Chronic systolic [] Acute/ chronic systolic [] Other, please indicate: [] [] If Unable to Determine, please check the box, sign and date. Present On Admission (POA) Indicator: [] Present at the time of admission [] Not present at the time of admission [] Clinically Undetermined Acute CHF due to Atrial Fibrillation. In responding to this query, please exercise your independent professional judgment. The fact that a question is asked does not imply that any particular answer is desired or expected. Thank you for your clarification on this documentation. If you have any questions please call:[ ] [phone] * Thank you, [ ] Monse Foster RN CDS buffer nickel HYACINTH
== END 2017-12-16 16:48 | DRG 291 ==
LOC: ED 14:52 → ERH 17:02 → 3RSO 18:34 → 3RNO 12-16 00:44
PROVIDERS: ADMIT Internal Medicine Medical Oncology; ATTEND Internal Medicine Medical Oncology
DX: I11.0 Hypertensive heart disease with heart failure (principal); J15.9 Unspecified bacterial pneumonia; J44.0 Chronic obstructive pulmonary disease with (acute) lower respiratory infection; J44.1 Chronic obstructive pulmonary disease with (acute) exacerbation; R65.10 Systemic inflammatory response syndrome (SIRS) of non-infectious origin without acute organ dysfunction; E03.9 Hypothyroidism, unspecified; E78.5 Hyperlipidemia, unspecified; I25.10 Atherosclerotic heart disease of native coronary artery without angina pectoris; I48.91 Unspecified atrial fibrillation; Z88.0 Allergy status to penicillin; Z88.2 Allergy status to sulfonamides; I50.9 Heart failure, unspecified; Z95.5 Presence of coronary angioplasty implant and graft; J20.9 Acute bronchitis, unspecified; Z79.01 Long term (current) use of anticoagulants; Z79.82 Long term (current) use of aspirin; Z79.899 Other long term (current) drug therapy; Z87.891 Personal history of nicotine dependence

== ENCOUNTER 2017-12-16 16:48 | Inpatient (IN) | payer OTHER, MEDICARE ==
[2017-12-16 18:23] VITALS: BMI 25.1
[2017-12-16] MEDS: Ipratropium 0.02% Inhal Soln (0.5 mg/2.5 ml) UD IH SCH (19:47)
[2017-12-16] MEDS: Levalbuterol 0.63 MG/3 ML Inhal Soln UD IH SCH (19:49)
[2017-12-16] MEDS: Budesonide 0.5 mg/2 ml Inhal Susp UD IH SCH (19:49)
[2017-12-16] MEDS: Aztreonam 1 Gm in NS 100mL 100 ML IVPB SCH (22:16)
[2017-12-17] MEDS: Aztreonam 1 Gm in NS 100mL 100 ML IVPB SCH ×3 (05:07→21:07)
[2017-12-17] MEDS: Pantoprazole 40 mg EC Tab PO SCH (05:07)
[2017-12-17] MEDS: Levothyroxine 125 MCG TAB PO SCH (05:07)
[2017-12-17] MEDS: Linezolid 600 mg in D5W 300 ml 600 MG/300 ML BAG IVPB SCH ×2 (05:07→17:45)
[2017-12-17 06:55] LABS: BLOOD UREA NITROGEN 30 mg/dL (7-21); GFR AFRICAN-AMERICAN > 60; GFR NON-AFRICAN AMERICAN > 60
[2017-12-17 07:02] LABS: BASO # 0.03 K/mm3 (0.0-2.0); BASO % 0.2 % (0.0-3.0); EOS % 7.7 % (1.5-5.0); GRAN # 8.32 (1.4-6.5); GRAN % 67.7 % (50.0-68.0); HEMOGLOBIN 13.6 g/dL (12.0-16.0); LYMPH # 2.2 (1.2-3.4); LYMPH % 17.7 % (22.0-35.0); MEAN CELL VOLUME 92.8 fl (80.0-105.0); MEAN CORPUSCULAR HEMOGLOBIN 30.6 pg (25.0-35.0); MEAN CORPUSCULAR HGB CONC 32.9 g/dl (31.0-37.0); MEAN PLATELET VOLUME 9.7 fl (7.0-11.0); MONO # 0.8 (0.1-0.6); MONO % 6.7 % (1.0-6.0); RBC 4.45 10^6/uL (3.5-6.1); RED CELL DISTRIBUTION WIDTH 13.8 % (11.5-14.5); WHITE BLOOD COUNT 12.3 10^3/ul (4.5-11.0)
[2017-12-17] MEDS: Ipratropium 0.02% Inhal Soln (0.5 mg/2.5 ml) UD IH SCH ×2 (07:51→20:05)
[2017-12-17] MEDS: Potassium Chloride 10 mEq ER Tab PO SCH (07:51)
[2017-12-17] MEDS: Levalbuterol 0.63 MG/3 ML Inhal Soln UD IH SCH ×3 (07:52→20:06)
[2017-12-17] MEDS: Budesonide 0.5 mg/2 ml Inhal Susp UD IH SCH ×2 (07:52→20:06)
--- NOTE | 2017-12-17 07:55 | PN ---
DATE: 12/17/2017 PULMONARY NOTE SUBJECTIVE: The patient appears very comfortable this morning. She is not short of breath at rest. PHYSICAL EXAMINATION: VITAL SIGNS: Temperature is 97.8, pulse 84, respirations 16, blood pressure 100/65. Oxygen saturation on nasal cannula 94%-95%. HEENT: Normocephalic, atraumatic. NECK: No JVD. CARDIOVASCULAR: Systolic ejection murmur at the lower left sternal border. Positive S3 gallop. LUNGS: Less crackles at the bases. Less rhonchi. No wheezing. EXTREMITIES: Less edema. No cyanosis or clubbing. Calves are nontender to palpation. GI: Abdomen is soft, nontender, nondistended. Bowel sounds are positive. SKIN: + new rash noted on the left lower extremity. NEUROLOGIC: Exam limited at the present time. IMPRESSION: 1. Bibasilar pneumonia. 2. Advanced chronic obstructive pulmonary disease. 3. Acute congestive heart failure. 4. Rapid atrial fibrillation. 5. Coronary artery disease. PLAN: The patient appears comfortable this morning. She is not short of breath at rest. She does state to feeling much, much better overall. On physical exam, there is certainly less bronchospasm noted. In addition, the alveolar-arterial gradient is also less. I will continue the current nebulizer treatments and inhaled steroids for now. The patient also remains on antibiotic therapy-as per Infectious Disease. There are no temperatures noted. The leukocytosis has been resolving. I did discuss the case with the night nurse at length. They will get in touch with Infectious Disease-and have them evaluate the left lower leg rash. The patient is now on the Transitional Unit-where she will participate with physical therapy. Her clinical status is significantly improved. I will discuss the above with the attending physician. Venkat Serna MD HYACINTH
--- NOTE | 2017-12-17 14:12 | CP.PCM.CON ---
History of Present Illness - History of Present Illness History of Present Illness: 72 year old female with PMH of CAD S/P PCI, hypothyroidism, COPD [place] [facility] [place] of [place] breath and cough and was found to have bibasilar community-acquired pneumonia and has been on antibiotics for this. She has improved. She is now transferred to [facility] for continued medical therapy and physical rehab. Infectious Diseases consult is requested to further evaluate and manage. She denies fever or chills, no nausea or vomiting, no chest pain, no SOB, cough is improving, no abdominal pain, no diarrhea, no dysuria. Review of Systems - Review of Systems All systems: reviewed and no additional remarkable complaints except (as per HPI ) Past Patient History - Infectious Disease Hx of Infectious Diseases: None - Past Social History Smoking Status: Former Smoker - CARDIAC Hx Cardiac Disorders: Yes Hx Hypertension: Yes - PULMONARY Hx Respiratory Disorders: Yes Hx Emphysema: Yes - ENDOCRINE/METABOLIC Hx Hypothyroidism: Yes - MUSCULOSKELETAL/RHEUMATOLOGICAL Hx Falls: No - GENITOURINARY/GYNECOLOGICAL Hx Reproductive Disorders: No - PSYCHIATRIC Hx Substance Use: No - SURGICAL HISTORY Hx Surgeries: Yes Hx Cardiac Catheterization: Yes Hx Coronary Stent: Yes - ANESTHESIA Hx Anesthesia: Yes Hx Anesthesia Reactions: No Hx Malignant Hyperthermia: No Meds Allergies/Adverse Reactions: Allergies Allergy/AdvReac Type Severity Reaction Status Date / Time Penicillins Allergy ANAPHYLAXIS Verified 08/04/16 11:16 shellfish derived Allergy ANAPHYLAXIS Verified 08/04/16 11:16 - Medications Medications: Current Medications Amlodipine Besylate (Norvasc) 5 mg PO DAILY SANDRA Apixaban (Eliquis) 2.5 mg PO BID SANDRA PRN Reason: Protocol Last Admin: 12/16/17 18:47 Dose: 2.5 mg Aspirin (Ecotrin) 81 mg PO 0800 SANDRA PRN Reason: Protocol Atorvastatin Calcium (Lipitor) 10 mg PO DIN SANDRA PRN Reason: Protocol Last Admin: 12/16/17 18:47 Dose: 10 mg Budesonide (Pulmicort Respules) 0.5 mg IH [id number] SANDRA PRN Reason: Protocol Last Admin: 12/16/17 19:49 Dose: 0.5 mg Carvedilol (Coreg) 25 mg PO 0800,1800 SANDRA PRN Reason: Protocol Last Admin: 12/16/17 18:46 Dose: Not Given Doxycycline Hyclate (Doryx) 100 mg PO Q12 SANRDA PRN Reason: Protocol Last Admin: 12/16/17 22:17 Dose: 100 mg Furosemide (Lasix) 40 mg IVP DAILY SANDRA PRN Reason: Protocol Aztreonam (Azactam 1 Gm) 100 mls @ 100 mls/hr IVPB Q8 SANDRA PRN Reason: Protocol Stop: 12/19/17 22:01 Last Admin: 12/16/17 22:16 Dose: 100 mls/hr Linezolid (Zyvox 600mg/300ml D5w) 600 mg in 300 mls @ 200 mls/hr IVPB 0600, 1800 SANDRA PRN Reason: Protocol Stop: 12/19/17 18:01 Ipratropium [place] (Atrovent) 0.5 mg IH TIDRESP SANDRA PRN Reason: Protocol Last Admin: 12/16/17 19:47 Dose: 0.5 mg Levalbuterol HCl (Xopenex) 0.63 mg IH TIDRESP SANDRA PRN Reason: Protocol Last Admin: 12/16/17 19:49 Dose: 0.63 mg Levothyroxine Sodium (Synthroid) 125 mcg PO 0600 SANDRA PRN Reason: Protocol Pantoprazole Sodium (Protonix Ec Tab) 40 mg PO 0600 SANDRA PRN Reason: Protocol Potassium Chloride (Klor-Con 10) 10 meq PO 0800 SANDRA PRN Reason: Protocol Valsartan (Diovan) 320 mg PO DAILY SANDRA PRN Reason: Protocol Physical Exam - Constitutional Appears: Non-toxic, Chronically Ill - Head Exam Head Exam: NORMAL INSPECTION - Respiratory Exam Respiratory Exam: Decreased Breath Sounds - Cardiovascular Exam Cardiovascular Exam: +S1, +S2 - GI/Abdominal Exam GI & Abdominal Exam: Soft. absent: Tenderness Results - Vital Signs Recent Vital Signs: Last Vital Signs Temp 97.8 F 12/16/17 18:15 Pulse 84 12/16/17 18:15 Resp 16 12/16/17 18:15 BP 100/65 12/16/17 18:46 Pulse Ox - Labs Result Diagrams: 12/17/17 06:15 12/17/17 06:15 Assessment & Plan - Assessment and Plan (Free Text) Plan: Assessment Sepsis due to bacterial community-acquired pneumonia, slowly improving CAD S/P PCI hypothyroidism COPD Plan Continue Zyvox, Azactam and Doxycycline (Day 5) to complete 5-7 days of therapy will monitor clinically
--- NOTE | 2017-12-17 23:35 | CP.PCM.HP ---
History of Present Illness - History of Present Illness History of Present Illness: History of present illness:: The patient was admitted with community-acquired pneumonia. She also has atrial fibrillation. Pulmonary consultation Dr. Serna, Cardiology Dr. Palma and ID consultation Dr. Suarez requested during hospitalization. Her general condition improved, treated with IV antibiotics for pneumonia, heart rate controlled with current medications. She was transferred to transitional care unit for deconditioning and gait improvement. Present on Admission - Present on Admission Any Indicators Present on Admission: No Review of Systems - Constitutional Constitutional: As Per HPI - EENT Eyes: absent: As Per HPI, Blind Spots, Blurred Vision, Change in Vision, Decreased Night Vision, Diplopia, Discharge, Dry Eye, Exophthalmos, Floaters, Irritation, Itchy Eyes, Loss of Peripheral Vision, Pain, Photophobia, Requires Corrective Lenses, Sees Flashes, Spots in Vision, Tunnel Vision, Other Visual Disturbances, Loss of Vision, Other - Breasts Breasts: absent: As Per HPI, Change in Shape, Mass, Pain, Nipple Discharge, Nipple Inversion, Skin Changes, Swelling, Other - Cardiovascular Cardiovascular: As Per HPI - Respiratory Respiratory: As Per HPI - Gastrointestinal Gastrointestinal: absent: As Per HPI, Abdominal Pain, Belching, Bloating, Change in Bowel Habits, Change in Stool Character, Coffee Ground Emesis, Constipation, Cramping, Diarrhea, Dyspepsia, Dysphagia, Early Satiety, Excessive Flatus, Fecal Incontinence, Heartburn, Hematemesis, Hematochezia, Loose Stools, Melena, Nausea, Odynophagia, Temesmus, Vomiting, Other - Genitourinary Genitourinary: absent: As Per HPI, Change in Urinary Stream, Difficulty Urinating, Dysuria, Flank Pain, Hematuria, Pyuria, Nocturia, Urinary Incontinence, Urinary Frequency, Urinary Hesitance, Urinary Urgency, Voiding Freq/Small Amts, Freq UTI, Hx Renal/Bladder Calculi, Hx /Renal Surgery, Bladder Distension, Other - Reproductive: Female Reproductive:Female: absent: As Per HPI, Amenorrhea, Amenorrhea/ Control, Currently Menstual, Cycle <21 Days, Cycle >35 Days, Cycle Variable, Menses 1-7 Days, Menses >/= 8 Days, Menses Variable, Cycle > 4 Weeks Between, No Menses for 6 Months, Heavy Menses, Light Menses, Normal Menses, Spotting Between Cycles , S/P Hysterectomy, Menopausal, Post Menopausal, Premenarche, Abnormal Vaginal Bleeding, Dysmenorrhea, Dyspareunia, Genital Lesions, Genital Pruritis, Pelvic Pain, Prolapse Symptoms, Sexual Dysfunction, Vaginal Discharge, Vaginal Dryness , Vaginal Odor, Vaginal Pruritis, Other - Musculoskeletal Musculoskeletal: As Per HPI - Integumentary Integumentary: absent: As Per HPI, Acne, Alopecia, Bleeding Lesions, Change in Hair, Change in Nails, Change in Pigmentation, Changing Lesions, Dry Skin, Erythema, Furuncle, Hirsutism, Lesions, New Lesions, Non-Healing Lesions, Photosensitivity, Pruritus, Rash, Skin Pain, Skin Ulcer, Sores, Striae, Swelling , Unusual Bruising, Wounds, Jaundice, Other - Neurological Neurological: absent: As Per HPI, Abnormal Gait, Abnormal Hearing, Abnormal Movements, Abnormal Speech, Behavioral Changes, Burning Sensations, Confusion, Convulsions, Disequilibrium, Dizziness, Numbness, Focal Weakness, Frequent Falls , Headaches, Lack of Coordination, Loss of Vision, Memory Loss, Paresthesias, Radicular Pain, Restless Legs, Sensory Deficit, Syncope, Tingling, Tremor, Vertigo, Weakness, Other Visual Disturbances, Other - Endocrine Endocrine: absent: As Per HPI, Change in Body Appearance, Change in Libido, Cold Intolorance, Deepening of Voice, Excessive Sweating, Fatigue, Flushing, Heat Intolorance, Increase in Ring/Shoe/Hat Size, Palpitations, Polydipsia, Polyphagia, Polyuria, Other - Hematologic/Lymphatic Hematologic: As Per HPI Past Patient History - Infectious Disease Hx of Infectious Diseases: None - Past Social History Smoking Status: Former Smoker - CARDIAC Hx Cardiac Disorders: Yes Hx Hypertension: Yes - PULMONARY Hx Respiratory Disorders: Yes Hx Emphysema: Yes - ENDOCRINE/METABOLIC Hx Hypothyroidism: Yes - MUSCULOSKELETAL/RHEUMATOLOGICAL Hx Falls: No - GENITOURINARY/GYNECOLOGICAL Hx Reproductive Disorders: No - PSYCHIATRIC Hx Substance Use: No - SURGICAL HISTORY Hx Surgeries: Yes Hx Cardiac Catheterization: Yes Hx Coronary Stent: Yes - ANESTHESIA Hx Anesthesia: Yes Hx Anesthesia Reactions: No Hx Malignant Hyperthermia: No Meds Allergies/Adverse Reactions: Allergies Allergy/AdvReac Type Severity Reaction Status Date / Time Penicillins Allergy ANAPHYLAXIS Verified 08/04/16 11:16 shellfish derived Allergy ANAPHYLAXIS Verified 08/04/16 11:16 Physical Exam - Constitutional Appears: Non-toxic, Chronically Ill - Head Exam Head Exam: ATRAUMATIC, NORMAL INSPECTION, NORMOCEPHALIC - Eye Exam Eye Exam: Normal appearance - ENT Exam ENT Exam: Mucous Membranes Moist - Neck Exam Neck exam: Positive for: Normal Inspection - Respiratory Exam Respiratory Exam: Clear to Auscultation Bilateral, NORMAL BREATHING PATTERN - Cardiovascular Exam Cardiovascular Exam: REGULAR RHYTHM, +S1, +S2 - GI/Abdominal Exam GI & Abdominal Exam: Normal Bowel Sounds, Soft - Extremities Exam Extremities exam: Positive for: normal inspection - Back Exam Back exam: NORMAL INSPECTION - Neurological Exam Neurological exam: Alert, CN II-XII Intact, Oriented x3 - Skin Skin Exam: Normal Color, Warm Results - Vital Signs Recent Vital Signs: Last Vital Signs Temp 98.5 F 12/17/17 17:43 Pulse 84 12/17/17 17:44 Resp 18 12/17/17 17:43 BP 106/74 12/17/17 17:44 Pulse Ox 96 12/17/17 17:43 - Labs Result Diagrams: 12/17/17 06:15 12/17/17 06:15 Labs: Laboratory Results - last 24 hr 12/17/17 12/17/17 06:15 06:15 WBC 12.3 H RBC 4.45 Hgb 13.6 Hct 41.3 MCV 92.8 MCH 30.6 MCHC 32.9 RDW 13.8 Plt Count 343 MPV 9.7 Gran % 67.7 Lymph % (Auto) 17.7 L [place] % (Auto) 6.7 H Eos % (Auto) 7.7 H Baso % (Auto) 0.2 Gran # 8.32 H Lymph # (Auto) 2.2 [place] # (Auto) 0.8 H Eos # (Auto) 1.0 H Baso # (Auto) 0.03 Sodium 138 Potassium 4.1 Chloride 98 Carbon Dioxide 35 H Anion Gap 9 L BUN 30 H Creatinine 0.8 Est GFR ( Amer) > 60 Est GFR (Non-Af Amer) > 60 Random Glucose 91 Calcium 9.0 Assessment & Plan - Assessment and Plan (Free Text) Assessment: 1. CAP : on IV antibiotics as per ID. improving. 2. Leukocytosis : related to PNA, improving. 3. COPD : Dr. Serna following. continue bronchodilators. 4. A-Fib : HR controlled with current meds. Cardiology following. 5. Continue PT for gait improvement. - Date & Time Date: 12/17/17 Time: 08:00
[2017-12-18] MEDS: Pantoprazole 40 mg EC Tab PO SCH (05:10)
[2017-12-18] MEDS: Linezolid 600 mg in D5W 300 ml 600 MG/300 ML BAG IVPB SCH (05:10)
[2017-12-18] MEDS: Aztreonam 1 Gm in NS 100mL 100 ML IVPB SCH ×2 (05:10→13:30)
[2017-12-18] MEDS: Levothyroxine 125 MCG TAB PO SCH (05:10)
[2017-12-18] MEDS: Levalbuterol 0.63 MG/3 ML Inhal Soln UD IH SCH ×3 (07:29→19:39)
[2017-12-18] MEDS: Budesonide 0.5 mg/2 ml Inhal Susp UD IH SCH ×2 (07:29→19:38)
[2017-12-18] MEDS: Ipratropium 0.02% Inhal Soln (0.5 mg/2.5 ml) UD IH SCH ×3 (07:29→19:39)
[2017-12-18] MEDS: Potassium Chloride 10 mEq ER Tab PO SCH (08:15)
--- NOTE | 2017-12-18 08:30 | CON ---
DATE: 12/17/2017 LOCATION: Patient in room 327, bed 1. REASON FOR CONSULTATION: Shortness of breath, pleural effusions, atrial fibrillation, COPD, pneumonia. HISTORY OF PRESENT ILLNESS: A 72-year-old female, known case of COPD, coronary artery disease, history of stent insertion 5 years ago, hypertension, hypothyroidism, was admitted with history that a few days prior to admission to medical floor, she was having shortness of breath, which was getting worse everyday. Patient's capacity to walk was decreasing due to shortness of breath. She did not have any chest pain, but she did get episodes of palpitation. She is being followed by aircraft riveter, Dr. Keane in [place] and 6 days ago, she had echo and stress test and as per patient, she was told that no significant abnormality was found. Patient came to the emergency room, was found to have new-onset atrial fibrillation, bilateral pleural effusions, and pneumonia. So, the patient was admitted to medical floor. She was treated medically and now, she is admitted to Transitional Care Unit for deconditioning and physical therapy. PAST MEDICAL HISTORY: Positive for CAD, stent 5 years ago; history of COPD, was told about 4 years ago; hypertension, about also 4 years ago; history of hypothyroidism. PERSONAL HISTORY: Used to smoke 1-1/2 pack a day, stopped about 5 years ago. Denies drinking. ALLERGIES: PATIENT IS ALLERGIC TO PENICILLIN AND SHELLFISH. HOME MEDICATION: Prior to admission to medical floor including aspirin 81 mg daily, atorvastatin 10 daily, Coreg 25 b.i.d., Plavix 75 daily, Levoxyl 0.125 mg p.o. daily, Diovan 320 p.o. daily, amlodipine 5 daily, hydrochlorothiazide 12.5 mg p.o. daily, Macrobid 1 tablet b.i.d. So, the patient while on medical floor, was stopped Plavix and added Eliquis therapy because of new-onset atrial fibrillation. REVIEW OF SYSTEMS: All other system reviewed. Positives mentioned in history, others were negative. PHYSICAL EXAMINATION: VITAL SIGNS: Blood pressure 105/68, respirations 16, pulse 86, temperature 97.8. HEENT: Head is normocephalic. Eyes: Pupils are normal. Conjunctivae are normal. Nose and throat normal. NECK: JVP low. Carotids are equal. THORAX: AP diameter normal. LUNGS: Diminished breath sounds on lung bases. CARDIOVASCULAR: S1 and S2. ABDOMEN: Soft, nontender, no organomegaly. Bowel sounds are normal. EXTREMITIES: No clubbing. No cyanosis. LABORATORY DATA: WBC 12.3, hemoglobin 13.6, hematocrit 41.3, platelets 343. Sodium 138, potassium 4.1, BUN 30, creatinine 0.8, glucose 91, calcium 9.0. AST and ALT normal. Total protein and albumin normal. Chest x-ray on medical floor showed COPD, chronic changes, small bilateral pleural effusions. EKG on medical floor showed atrial fibrillation rapid rate, now about it is under control. DIAGNOSES: Exacerbation of chronic obstructive pulmonary disease, pneumonia, new-onset atrial fibrillation, rapid rate, bilateral pleural effusions, coronary artery disease, history of stent insertion, hypothyroidism, hypertension, deconditioning. Patient is on Lipitor 10 mg daily, Coreg 25 mg b.i.d., Eliquis 2.5 mg b.i.d., Atrovent hand nebulizer therapy, Pulmicort Respules, Xopenex hand nebulizer therapy, Azactam 1 g IV b.i.d., Doryx 100 mg p.o. every 12 hours, Protonix 40 daily, Synthroid 125 mcg daily, IV b.i.d., Ecotrin 81 mg daily, Klor-Con 10 mEq daily, Diovan 320 daily, Lasix 40 mg IV daily, Norvasc 5 mg daily, Pepcid 20 mg daily. We will continue present therapy. Continue physical therapy for deconditioning. We will follow with you. Tomasz Palma MD
--- NOTE | 2017-12-18 09:12 | PN ---
DATE: 12/18/2017 PULMONARY NOTE SUBJECTIVE: The patient appears very comfortable this morning. She is not short of breath at rest. PHYSICAL EXAMINATION: VITAL SIGNS: (Last noted in the computer): Temperature is 98.5, pulse 84, respirations 18, blood pressure 106/74. Oxygen saturation on nasal cannula is 96%. HEENT: Normocephalic, atraumatic. NECK: No JVD. CARDIOVASCULAR: Systolic ejection murmur at the lower left sternal border. Positive S3 gallop. LUNGS: Minimal crackles at the bases. Very minimal/less rhonchi. No wheezing. EXTREMITIES: Less edema. No cyanosis, no clubbing. Calves are nontender to palpation. GI: Abdomen is soft, nontender, nondistended. Bowel sounds are positive. SKIN: Less rash-left lower extremity. Minimal rash-right lower extremity. NEUROLOGIC: Exam limited at the present time. IMPRESSION: 1. Bibasilar pneumonia. 2. Advanced chronic obstructive pulmonary disease. 3. Acute congestive heart failure. 4. Rapid atrial fibrillation. 5. Coronary artery disease. PLAN: The patient appears comfortable this morning. She is not short of breath at rest. She does state to feeling much better overall. I did discuss the case with the night nurses at length. The night nurses did state that Dr. Maurice (Infectious Disease) examined the patient's rash yesterday. He will also be back today. On physical exam, her bronchospasm continues to resolve. In addition, there is no significant alveolar-arterial gradient. I will continue with the current nebulizer treatments and inhaled steroids for now. I would continue with the antibiotic coverage as per Infectious Disease. I would continue with the treatment for congestive heart failure as per Cardiology. The patient remains on Lasix therapy. The clinical status of this patient is significantly improved overall. I will discuss the above with the attending physician. Venkat Serna MD HYACINTH
--- NOTE | 2017-12-18 11:17 | CP.PCM.PN ---
Subjective - Date & Time of Evaluation Date of Evaluation: 12/18/17 Time of Evaluation: 10:55 - Subjective Subjective: Patient complaining of rash on her lower extremities which are not itchy, not painful, and improving since yesterday. Objective - Vital Signs/Intake and Output Vital Signs (last 24 hours): Temp Pulse Resp BP Pulse Ox 98.5 F 72 18 117/69 96 12/17/17 17:43 12/18/17 08:15 12/17/17 17:43 12/18/17 08:15 12/17/17 17:43 - Medications Medications: Current Medications Amlodipine Besylate (Norvasc) 5 mg PO DAILY [facility] Last Admin: 12/17/17 09:54 Dose: Not Given Apixaban (Eliquis) 2.5 mg PO BID SANDRA PRN Reason: Protocol Last Admin: 12/17/17 17:44 Dose: 2.5 mg Aspirin (Ecotrin) 81 mg PO 0800 SANDRA PRN Reason: Protocol Last Admin: 12/18/17 08:15 Dose: 81 mg Atorvastatin Calcium (Lipitor) 10 mg PO DIN SANDRA PRN Reason: Protocol Last Admin: 12/17/17 17:44 Dose: 10 mg Budesonide (Pulmicort Respules) 0.5 mg IH [id number] SANDRA PRN Reason: Protocol Last Admin: 12/18/17 07:29 Dose: 0.5 mg Carvedilol (Coreg) 25 mg PO 0800,1800 SANDRA PRN Reason: Protocol Last Admin: 12/18/17 08:15 Dose: 25 mg Doxycycline Hyclate (Doryx) 100 mg PO Q12 SANDRA PRN Reason: Protocol Last Admin: 12/17/17 21:07 Dose: 100 mg Famotidine (Pepcid) 20 mg PO 1000,2200 SANDRA PRN Reason: Protocol Last Admin: 12/17/17 21:07 Dose: 20 mg Furosemide (Lasix) 40 mg IVP DAILY SANDRA PRN Reason: Protocol Last Admin: 12/17/17 12:24 Dose: 40 mg Aztreonam (Azactam 1 Gm) 100 mls @ 100 mls/hr IVPB Q8 SANDRA PRN Reason: Protocol Stop: 12/19/17 22:01 Last Admin: 12/18/17 05:10 Dose: 100 mls/hr Ipratropium [place] (Atrovent) 0.5 mg IH TIDRESP SANDRA PRN Reason: Protocol Last Admin: 12/18/17 07:29 Dose: 0.5 mg Levalbuterol HCl (Xopenex) 0.63 mg IH TIDRESP SANDRA PRN Reason: Protocol Last Admin: 12/18/17 07:29 Dose: 0.63 mg Levothyroxine Sodium (Synthroid) 125 mcg PO 0600 SANDRA PRN Reason: Protocol Last Admin: 12/18/17 05:10 Dose: 125 mcg Pantoprazole Sodium (Protonix Ec Tab) 40 mg PO 0600 SANDRA PRN Reason: Protocol Last Admin: 12/18/17 05:10 Dose: 40 mg Potassium Chloride (Klor-Con 10) 10 meq PO 0800 SANDRA PRN Reason: Protocol Last Admin: 12/18/17 08:15 Dose: 10 meq Valsartan (Diovan) 320 mg PO DAILY SANDRA PRN Reason: Protocol Last Admin: 12/17/17 09:53 Dose: 320 mg - Labs Labs: 12/17/17 06:15 12/17/17 06:15 - Constitutional Appears: Non-toxic, Chronically Ill - Head Exam Head Exam: NORMAL INSPECTION - ENT Exam ENT Exam: Mucous Membranes Moist - Neck Exam Neck Exam: absent: Meningismus - Respiratory Exam Respiratory Exam: Decreased Breath Sounds - Cardiovascular Exam Cardiovascular Exam: +S1, +S2 - GI/Abdominal Exam GI & Abdominal Exam: Soft. absent: Tenderness - Extremities Exam Additional comments: both lower extremities with some macular confluent rash, non-blanching, non- erythematous, non-tender Assessment and Plan - Assessment and Plan (Free Text) Plan: Assessment Sepsis due to bacterial community-acquired pneumonia, clinically improving non-blanching confluent macular rash on both lower extremities, slowly improving , R/O drug-induced CAD S/P PCI hypothyroidism COPD Plan will hold Zyvox because of the rash; continue Azactam and Doxycycline (Day 6) to complete 5-7 days of therapy will continue to monitor clinically will monitor rash clinically
--- NOTE | 2017-12-18 15:25 | PN ---
DATE: 12/18/2017 LOCATION: The patient is in room 327, bed 1. REASON FOR CONSULTATION AND FOLLOWUP: Shortness of breath, pleural effusion, atrial fibrillation, COPD, and pneumonia. SUBJECTIVE: The patient says her breathing is better and she is not getting any palpitation. Denies any chest pain. According to the patient, a few weeks ago, she had an echo and a stress test done with her pci security consultant, Dr. Keane in [place] and as per the patient, she was told no significant abnormality was seen. The patient is now sitting in a chair without any cardiac symptoms. The patient was found in atrial fibrillation on admission with rapid rate, which the patient says that she never had before. The patient is now in Transitional Care Unit for deconditioning and physical therapy. PHYSICAL EXAMINATION: VITAL SIGNS: Blood pressure 90/58, respirations 18, pulse 98. When I examined, pulse was around 88. The patient is afebrile. HEENT: Head is normocephalic. Eyes; pupils normal, conjunctivae normal. Nose and throat normal. NECK: JVP low. Carotids equal. THORAX: AP diameter normal. LUNGS: Diminished breath sounds at the lung bases, otherwise no significant rales. CARDIOVASCULAR: S1 and S2, irregular rhythm due to atrial fibrillation. ABDOMEN: Soft, nontender. There is no organomegaly. Bowel sounds are normal. EXTREMITIES: No clubbing. No cyanosis. LABORATORY DATA: WBC 12.3, hemoglobin 13.6, hematocrit 41.3, and platelets 343. Sodium 138, potassium 4.1, BUN 30, creatinine 0.8, sugar 91, calcium 9. DIAGNOSES: Exacerbation of chronic obstructive pulmonary disease; pneumonia; new-onset atrial fibrillation, rapid rate; bilateral pleural effusions; coronary artery disease, history of stent insertion in the past; hypothyroidism; hypertension; deconditioning. PLAN: The patient is getting physical therapy for deconditioning and we will continue hand nebulizer therapy and the patient is getting aztreonam 1 g IV every 8 hours, carvedilol 25 mg b.i.d., Diovan 320 daily, doxycycline hyclate 100 mg p.o. every 12 hours, aspirin 81 mg daily, furosemide 40 IV daily, atorvastatin 10 mg daily, amlodipine 5 mg daily, Pepcid 20 mg b.i.d., Protonix 40 daily, levothyroxine 125 mcg p.o. daily, and Xopenex hand nebulizer therapy. We will continue present therapy and we will follow. Tomasz Palma MD
[2017-12-19] MEDS: Pantoprazole 40 mg EC Tab PO SCH (05:09)
[2017-12-19] MEDS: Levothyroxine 125 MCG TAB PO SCH (05:09)
[2017-12-19] MEDS: Ipratropium 0.02% Inhal Soln (0.5 mg/2.5 ml) UD IH SCH ×3 (07:15→20:22)
[2017-12-19] MEDS: Budesonide 0.5 mg/2 ml Inhal Susp UD IH SCH ×2 (07:15→20:22)
[2017-12-19] MEDS: Levalbuterol 0.63 MG/3 ML Inhal Soln UD IH SCH ×3 (07:15→20:22)
--- NOTE | 2017-12-19 07:31 | PN ---
DATE: PULMONARY NOTE SUBJECTIVE: The patient appears comfortable this morning. She is not short of breath at rest. OBJECTIVE VITAL SIGNS: Temperature 98, pulse 80, respirations 16, blood pressure 109/71. Oxygen saturation on room air 96%. HEENT: Normocephalic, atraumatic. NECK: No JVD. CARDIOVASCULAR: Systolic ejection murmur at the lower left sternal border. Positive S3 gallop. LUNGS: Less crackles at the bases. Much less rhonchi. No wheezing. EXTREMITIES: Less edema. No cyanosis, no clubbing. Calves are nontender to palpation. GASTROINTESTINAL: Abdomen is soft, nontender and nondistended. Bowel sounds are positive. SKIN: Mild rash, both lower extremities. NEUROLOGIC: Exam limited at the present time. IMPRESSION 1. Bibasilar pneumonia. 2. Advanced chronic obstructive pulmonary disease. 3. Acute congestive heart failure. 4. Rapid atrial fibrillation. 5. Coronary artery disease. PLAN: The patient appears comfortable this morning. She is not short of breath at rest. She does state to feeling much better overall. I did discuss the case with the night nurses at length. The night nurses stated that the patient had a very good night. The patient was also seen by Dr. Maurice (Infectious Disease) yesterday--+rash,antibiotics.. On physical exam, her bronchospasm is significantly less. In addition, the oxygen saturation on room air is now 96%. I will continue with the current nebulizer treatments and inhaled steroids for now. I would continue with the antibiotic coverage as per Infectious Disease. The temperatures have resolved. The leukocytosis has almost completely resolved. I would continue with the treatment for congestive heart failure as per Cardiology. Clinical status of the patient is significantly improved overall. I will discuss the above with the attending physician. Venkat Serna MD [facility]
[2017-12-19] MEDS: Potassium Chloride 10 mEq ER Tab PO SCH (08:06)
--- NOTE | 2017-12-19 10:15 | PN ---
DATE: 12/19/2017 LOCATION: The patient is in room 327, bed 1. REASON FOR CONSULTATION: Follow up shortness of breath, pleural effusion, atrial fibrillation, COPD, pneumonia. SUBJECTIVE: The patient says that her breathing is better. She denies any palpitation and denies any chest pain. The patient started physical therapy. The patient is sitting in chair comfortably without cardiac symptoms. PHYSICAL EXAMINATION: VITAL SIGNS: Blood pressure 109/71, respirations 16, pulse 80, temperature 98. HEENT: Head is normocephalic. Eyes: Pupils normal. Conjunctivae normal. NECK: JVP low. Carotids equal. THORAX: AP diameter normal. LUNGS: Slightly diminished breath sounds in the lung bases. CARDIOVASCULAR: S1 and S2. Irregular rhythm due to atrial fibrillation. ABDOMEN: Soft. No tenderness. No organomegaly. Bowel sounds normal. EXTREMITIES: No clubbing. No cyanosis. LABORATORY DATA: WBC 12.3, hemoglobin 13.6, hematocrit 41.3, platelets 343. Sodium 138, potassium 4.1, BUN 30, creatinine 0.8, calcium 9.0, random glucose 91. DIAGNOSES: Exacerbation of chronic obstructive pulmonary disease, pneumonia, new-onset atrial fibrillation and rapid rate, bilateral pleural effusion, coronary artery disease, was here for stent insertion in the past, hypothyroidism, hypertension, deconditioning, pleural effusion and mild congestive heart failure related to new-onset atrial fibrillation with rapid rate. 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 The patient on carvedilol 25 mg b.i.d., valsartan 320 mg p.o. daily, aspirin 81 mg daily, Eliquis 12.5 b.i.d., potassium 10 mEq daily, furosemide 40 IV daily, Lipitor 10 daily, amlodipine 5 daily, Pepcid 20 mg b.i.d, Protonix 40 daily, levothyroxine 125 mcg p.o. daily, Xopenex hand nebulizer therapy. We will repeat SMA-7 in the morning. I will repeat chest x-ray in the morning to see improvement of pleural effusion and continue physical therapy. We will follow. Tomasz Palma MD
[2017-12-20] MEDS: Pantoprazole 40 mg EC Tab PO SCH (05:11)
[2017-12-20] MEDS: Levothyroxine 125 MCG TAB PO SCH (05:11)
[2017-12-20] MEDS: Levalbuterol 0.63 MG/3 ML Inhal Soln UD IH SCH ×3 (07:19→19:37)
[2017-12-20] MEDS: Ipratropium 0.02% Inhal Soln (0.5 mg/2.5 ml) UD IH SCH ×3 (07:19→19:37)
[2017-12-20] MEDS: Budesonide 0.5 mg/2 ml Inhal Susp UD IH SCH ×2 (07:19→19:37)
[2017-12-20 07:21] LABS: BASO # 0.05 K/mm3 (0.0-2.0); BASO % 0.5 % (0.0-3.0); EOS # 0.9 (0.0-0.7); EOS % 7.7 % (1.5-5.0); GRAN # 6.73 (1.4-6.5); GRAN % 60.8 % (50.0-68.0); HEMOGLOBIN 12.9 g/dL (12.0-16.0); LYMPH # 2.6 (1.2-3.4); LYMPH % 23.8 % (22.0-35.0); MEAN CELL VOLUME 94.1 fl (80.0-105.0); MEAN CORPUSCULAR HEMOGLOBIN 30.3 pg (25.0-35.0); MEAN CORPUSCULAR HGB CONC 32.2 g/dl (31.0-37.0); MEAN PLATELET VOLUME 9.2 fl (7.0-11.0); MONO # 0.8 (0.1-0.6); MONO % 7.2 % (1.0-6.0); RBC 4.26 10^6/uL (3.5-6.1); RED CELL DISTRIBUTION WIDTH 13.8 % (11.5-14.5); WHITE BLOOD COUNT 11.1 10^3/ul (4.5-11.0)
[2017-12-20 07:38] LABS: BLOOD UREA NITROGEN 25 mg/dL (7-21); CALCIUM 8.8 mg/dL (8.4-10.5); GFR AFRICAN-AMERICAN > 60; GFR NON-AFRICAN AMERICAN 55
[2017-12-20] MEDS: Potassium Chloride 10 mEq ER Tab PO SCH (08:17)
[2017-12-20] MEDS: Aztreonam 1 Gm in NS 100mL 100 ML IVPB SCH ×2 (08:22→17:23)
--- NOTE | 2017-12-20 11:41 | CP.PCM.PN ---
Subjective - Date & Time of Evaluation Date of Evaluation: 12/20/17 Time of Evaluation: 11:05 - Subjective Subjective: Comfortably doing her physical therapy, still has the rash on the legs but it is not pruritic, no pain, no discharge. Objective - Vital Signs/Intake and Output Vital Signs (last 24 hours): Temp Pulse Resp BP Pulse Ox 97.4 F L 81 18 121/71 97 12/20/17 04:00 12/20/17 04:00 12/20/17 04:00 12/20/17 04:00 12/20/17 04:00 - Medications Medications: Current Medications Amlodipine Besylate (Norvasc) 5 mg PO DAILY [facility] Last Admin: 12/19/17 09:55 Dose: 5 mg Apixaban (Eliquis) 2.5 mg PO BID SANDRA PRN Reason: Protocol Last Admin: 12/19/17 17:57 Dose: 2.5 mg Aspirin (Ecotrin) 81 mg PO 0800 SANDRA PRN Reason: Protocol Last Admin: 12/19/17 08:06 Dose: 81 mg Atorvastatin Calcium (Lipitor) 10 mg PO DIN SANDRA PRN Reason: Protocol Last Admin: 12/19/17 17:58 Dose: 10 mg Budesonide (Pulmicort Respules) 0.5 mg IH [id number] SANDRA PRN Reason: Protocol Last Admin: 12/20/17 07:19 Dose: 0.5 mg Carvedilol (Coreg) 25 mg PO 0800,1800 SANDRA PRN Reason: Protocol Last Admin: 12/19/17 17:57 Dose: Not Given Famotidine (Pepcid) 20 mg PO 1000,2200 SANDRA PRN Reason: Protocol Last Admin: 12/19/17 21:14 Dose: 20 mg Furosemide (Lasix) 40 mg IVP DAILY SANDRA PRN Reason: Protocol Last Admin: 12/19/17 09:55 Dose: 40 mg Ipratropium [place] (Atrovent) 0.5 mg IH TIDRESP SANDRA PRN Reason: Protocol Last Admin: 12/20/17 07:19 Dose: 0.5 mg Levalbuterol HCl (Xopenex) 0.63 mg IH TIDRESP SANDRA PRN Reason: Protocol Last Admin: 12/20/17 07:19 Dose: 0.63 mg Levothyroxine Sodium (Synthroid) 125 mcg PO 0600 SANDRA PRN Reason: Protocol Last Admin: 12/20/17 05:11 Dose: 125 mcg Pantoprazole Sodium (Protonix Ec Tab) 40 mg PO 0600 SANDRA PRN Reason: Protocol Last Admin: 12/20/17 05:11 Dose: 40 mg Potassium Chloride (Klor-Con 10) 10 meq PO 0800 SANDRA PRN Reason: Protocol Last Admin: 12/19/17 08:06 Dose: 10 meq Valsartan (Diovan) 320 mg PO DAILY SANDRA PRN Reason: Protocol Last Admin: 12/19/17 09:55 Dose: 320 mg - Labs Labs: 12/20/17 07:00 12/17/17 06:15 - Constitutional Appears: Non-toxic, Chronically Ill - Head Exam Head Exam: NORMAL INSPECTION - ENT Exam ENT Exam: Mucous Membranes Moist - Neck Exam Neck Exam: absent: Meningismus - Respiratory Exam Respiratory Exam: Decreased Breath Sounds - Cardiovascular Exam Cardiovascular Exam: +S1, +S2 - GI/Abdominal Exam GI & Abdominal Exam: Soft. absent: Tenderness - Extremities Exam Additional comments: macular rash on both lower extremities which are fading, no tenderness, no erythema Assessment and Plan - Assessment and Plan (Free Text) Plan: Assessment Sepsis due to bacterial community-acquired pneumonia, clinically improving non-blanching confluent macular rash on both lower extremities, slowly improving , R/O drug-induced CAD S/P PCI hypothyroidism COPD Plan continue Azactam and will d/c after today will continue to monitor clinically will monitor rash clinically
--- NOTE | 2017-12-20 12:21 | RAD ---
HISTORY: Compare to see improvement of CHF,Pl.Effusions. COMPARISON: 12/15/2017 TECHNIQUE: Chest PA and lateral FINDINGS: LUNGS: No active pulmonary disease. PLEURA: Small left pleural effusion CARDIOVASCULAR: Normal. OSSEOUS STRUCTURES: No significant abnormalities. VISUALIZED UPPER ABDOMEN: Normal. OTHER FINDINGS: None. IMPRESSION: Small left-sided pleural effusion showing improvement from earlier study
--- NOTE | 2017-12-20 12:42 | PN ---
DATE: REASON FOR CONSULTATION AND FOLLOWUP: Shortness of breath, pleural effusion, atrial fibrillation, COPD, pneumonia. SUBJECTIVE: The patient denies any chest pain, shortness of breath or any palpitations. PHYSICAL EXAMINATION GENERAL: The patient is not in apparent distress. VITAL SIGNS: Temperature afebrile, heart rate 80, blood pressure 121/71. HEENT: PERRLA, intact. NECK: Supple. No carotid bruit or thyromegaly. CHEST: Clear to auscultation. HEART: S1 and S2 regular. ABDOMEN: Soft. EXTREMITIES: Clubbing and cyanosis negative. LABORATORY DATA: Blood workup as follows: WBC 11.1, hemoglobin 12.9, hematocrit 40.1, platelet count 278. Chemistry shows sodium 130, potassium 3.7, chloride 96, carbon dioxide 38, anion gap of 8, BUN 25, creatinine 1. IMPRESSION: Exacerbation of acute chronic obstructive pulmonary disease, pneumonia, new onset atrial fibrillation with rapid rate, bilateral pleural effusion, coronary artery disease, hypothyroidism, hypertension, deconditioning of the body, pleural effusion. RECOMMENDATIONS: Continue Eliquis 2.5 b.i.d., continue carvedilol, continue valsartan, continue aspirin. We will follow with you. Thank you, Dr. Corona for providing us the opportunity in taking care of the patient, Martha Sheridan. Tomasz Rai MD
--- NOTE | 2017-12-20 13:37 | PN ---
DATE: 12/20/2017 PULMONARY PROGRESS NOTE SUBJECTIVE: The patient is siting in bed in transitional care unit continuing to receive physical therapy and awaiting eventual discharge. She states that her respiratory status has markedly improved. She denies cough or expectoration. She is not breathless at rest, only minimally so on physical exertion. OBJECTIVE: VITAL SIGNS: Stable. She is afebrile, 98.6 with a respiratory rate of 16, blood pressure 110/70, O2 sat 96% on room air. HEENT: Normocephalic, atraumatic. NECK: Supple. No JVD. No lymphadenopathy. No bruit. CARDIOVASCULAR: Regular rhythm, S1 and S2 without gallop. There is a soft systolic ejection murmur noted. ABDOMEN: Soft. Bowel sounds are normoactive without mass, guarding, rebound, or organomegaly. EXTREMITIES: Reveal no clubbing, cyanosis, or edema. There is no Homans sign. SKIN: Mild rash, but no excoriations. Skin is dry. NEUROLOGIC: No focal findings. Mental status is normal. LABORATORY STUDIES: No recent studies are available. IMPRESSION: 1. Bibasilar pneumonia (status post). 2. Advanced chronic obstructive pulmonary disease. 3. Congestive heart failure. 4. Atrial fibrillation. 5. Coronary artery disease. PLAN: Patient is well known to Dr. Serna. When she is discharged, she will follow with him in the office. Further intervention by ID regarding her antibiotic-induced rash. Bronchospasm has resolved. Continue vigorous bronchodilator therapy. Decrease corticosteroids as tolerated. Close followup with Cardiology and Dr. Serna as an outpatient. Thank you for the opportunity to evaluate this patient. Dr. Serna will continue to follow the patient as required. Dylan Braxton MD
[2017-12-21] MEDS: Pantoprazole 40 mg EC Tab PO SCH (05:26)
[2017-12-21] MEDS: Levothyroxine 125 MCG TAB PO SCH (05:26)
[2017-12-21] MEDS: Budesonide 0.5 mg/2 ml Inhal Susp UD IH SCH ×2 (07:21→20:04)
[2017-12-21] MEDS: Ipratropium 0.02% Inhal Soln (0.5 mg/2.5 ml) UD IH SCH ×3 (07:21→20:04)
[2017-12-21] MEDS: Levalbuterol 0.63 MG/3 ML Inhal Soln UD IH SCH ×3 (07:21→20:05)
[2017-12-21] MEDS: Potassium Chloride 10 mEq ER Tab PO SCH (08:30)
--- NOTE | 2017-12-21 12:00 | CP.PCM.PN ---
Subjective - Date & Time of Evaluation Date of Evaluation: 12/21/17 Time of Evaluation: 10:45 - Subjective Subjective: Comfortable, no nausea, no fevers, still with rash on her legs but slowly fading. Objective - Vital Signs/Intake and Output Vital Signs (last 24 hours): Temp Pulse Resp BP Pulse Ox 98.2 F 76 16 108/70 96 12/21/17 06:00 12/21/17 06:00 12/21/17 06:00 12/21/17 06:00 12/21/17 06:00 - Medications Medications: Current Medications Amlodipine Besylate (Norvasc) 5 mg PO DAILY [facility] Last Admin: 12/20/17 14:06 Dose: Not Given Apixaban (Eliquis) 2.5 mg PO BID SANDRA PRN Reason: Protocol Last Admin: 12/20/17 17:22 Dose: 2.5 mg Aspirin (Ecotrin) 81 mg PO 0800 SANDRA PRN Reason: Protocol Last Admin: 12/20/17 08:17 Dose: 81 mg Atorvastatin Calcium (Lipitor) 10 mg PO DIN SANDRA PRN Reason: Protocol Last Admin: 12/20/17 16:34 Dose: 10 mg Budesonide (Pulmicort Respules) 0.5 mg IH [id number] SANDRA PRN Reason: Protocol Last Admin: 12/21/17 07:21 Dose: 0.5 mg Carvedilol (Coreg) 25 mg PO 0800,1800 SANDRA PRN Reason: Protocol Last Admin: 12/20/17 17:23 Dose: 25 mg Famotidine (Pepcid) 20 mg PO 1000,2200 SANDRA PRN Reason: Protocol Last Admin: 12/20/17 21:29 Dose: 20 mg Furosemide (Lasix) 40 mg IVP DAILY SANDRA PRN Reason: Protocol Last Admin: 12/20/17 14:07 Dose: Not Given Ipratropium [place] (Atrovent) 0.5 mg IH TIDRESP SANDRA PRN Reason: Protocol Last Admin: 12/21/17 07:21 Dose: 0.5 mg Levalbuterol HCl (Xopenex) 0.63 mg IH TIDRESP SANDRA PRN Reason: Protocol Last Admin: 12/21/17 07:21 Dose: 0.63 mg Levothyroxine Sodium (Synthroid) 125 mcg PO 0600 SANDRA PRN Reason: Protocol Last Admin: 12/21/17 05:26 Dose: 125 mcg Pantoprazole Sodium (Protonix Ec Tab) 40 mg PO 0600 SANDRA PRN Reason: Protocol Last Admin: 12/21/17 05:26 Dose: 40 mg Potassium Chloride (Klor-Con 10) 10 meq PO 0800 SANDRA PRN Reason: Protocol Last Admin: 12/20/17 08:17 Dose: 10 meq Valsartan (Diovan) 320 mg PO DAILY SANDRA PRN Reason: Protocol Last Admin: 12/20/17 14:07 Dose: Not Given - Labs Labs: 12/20/17 07:00 12/20/17 06:30 - Constitutional Appears: Chronically Ill - Head Exam Head Exam: NORMAL INSPECTION - ENT Exam ENT Exam: Mucous Membranes Moist - Neck Exam Neck Exam: absent: Meningismus - Respiratory Exam Respiratory Exam: Decreased Breath Sounds - Cardiovascular Exam Cardiovascular Exam: +S1, +S2 - GI/Abdominal Exam GI & Abdominal Exam: Soft. absent: Tenderness - Extremities Exam Additional comments: macular rash on both lower extremities Assessment and Plan - Assessment and Plan (Free Text) Plan: Assessment Sepsis due to bacterial community-acquired pneumonia, clinically improved and S/ P treatment with antibiotics non-blanching confluent macular rash on both lower extremities, slowly improving , R/O drug-induced CAD S/P PCI hypothyroidism COPD Plan will continue to monitor clinically off antibiotics since she is at risk for nosocomial infections will continue to monitor rash clinically - asymptomatic, slowly fading, no treatment for now
--- NOTE | 2017-12-21 14:08 | PN ---
DATE: REASON FOR CONSULTATION AND FOLLOWUP: Shortness of breath, pleural effusion, atrial fibrillation, COPD, pneumonia. SUBJECTIVE: The patient denies any chest pain, shortness of breath or any palpitations. OBJECTIVE GENERAL: Not in apparent distress. VITAL SIGNS: Temperature afebrile, heart rate 87, blood pressure 110/70. HEENT: PERRLA. Extraocular muscles intact. NECK: Supple. No carotid bruit or thyromegaly. CHEST: Clear to auscultation. HEART: S1 and S2 regular. ABDOMEN: Soft. EXTREMITIES: Clubbing and cyanosis negative. LABORATORY DATA: Blood workup as follows: WBC 11.1, hemoglobin 12.9, hematocrit 40.1, platelets 278. Chemistry shows sodium 130, potassium 3.7, chloride 96, carbon dioxide 38, anion gap of 8, BUN 25, creatinine 1. IMPRESSION: Exacerbation of acute chronic obstructive pulmonary disease; pneumonia; new-onset atrial fibrillation with rapid rate, now rate well controlled; bilateral pleural effusion; coronary artery disease; hypothyroidism; hypertension; deconditioning of body; pleural effusion. RECOMMENDATIONS: Continue Eliquis, continue carvedilol, continue valsartan, continue aspirin, continue rehab. We will follow with you. Thank you Dr. Corona for providing us the opportunity in taking care of the patient, Martha Sheridan. Tomasz Rai MD
--- NOTE | 2017-12-21 22:07 | PN ---
DATE: 12/21/2017 SUBJECTIVE: She is comfortable in chair, in no acute distress, participating in physical therapy. Pneumonia improving, currently on IV antibiotics. Dr. Serna, Pulmonary and ID, Dr. Maurice following. Heart rate controlled with current medication, has atrial fibrillation. Developed a rash on lower extremity which is resolving now. REVIEW OF SYSTEMS: As per HPI. Rest of 12-point review of systems reviewed negative. LABORATORY DATA: White count 12.3, hemoglobin 13.6, hematocrit , platelet 343. MEDICATIONS: Norvasc 5 mg daily, Eliquis 2.5 mg p.o. b.i.d., aspirin 81 mg daily, Lipitor 10 mg daily, Coreg 25 mg p.o. b.i.d., Lasix 40 mg daily, Atrovent, Synthroid 125 mcg daily, Protonix 40 mg daily, Klor-Con 10 mEq daily, and Diovan 320 mg daily. PHYSICAL EXAMINATION: GENERAL: Comfortable in bed, in no acute distress. VITAL SIGNS: Temperature 98, heart rate 71 per minute, blood pressure 104/68, respiratory rate 18 per minute, oxygen saturation 100% on room air. HEENT: Pallor positive. NECK: No lymphadenopathy. CHEST: Air entry present and equal bilaterally. No added sounds. CARDIOVASCULAR: S1 and S2 normal. No murmur. No gallop. ABDOMEN: Soft, nontender. No hepatosplenomegaly. EXTREMITIES: No edema. SKIN: No petechiae. No rash. ASSESSMENT AND PLAN: Community-acquired pneumonia, treated with IV antibiotic; atrial fibrillation, currently on Eliquis. Continue cardiac medication, Diovan. Continue Synthroid 125 mcg daily. Continue bronchodilators. Lasix 40 mg IV daily. We will monitor the electrolytes. Jane Corona MD
[2017-12-22] MEDS: Levothyroxine 125 MCG TAB PO SCH (05:16)
[2017-12-22] MEDS: Pantoprazole 40 mg EC Tab PO SCH (05:16)
[2017-12-22] MEDS: Levalbuterol 0.63 MG/3 ML Inhal Soln UD IH SCH ×3 (07:22→20:07)
[2017-12-22] MEDS: Ipratropium 0.02% Inhal Soln (0.5 mg/2.5 ml) UD IH SCH ×3 (07:22→20:07)
[2017-12-22] MEDS: Budesonide 0.5 mg/2 ml Inhal Susp UD IH SCH ×2 (07:22→20:07)
--- NOTE | 2017-12-22 07:58 | PN ---
DATE: 12/22/2017 PULMONARY NOTE SUBJECTIVE: The patient appears comfortable this morning. She is not short of breath at rest. PHYSICAL EXAMINATION: VITAL SIGNS: Temperature is 98.5, pulse is 71, respirations 18, blood pressure 104/68. Oxygen saturation on nasal cannula is 100%. HEENT: Normocephalic, atraumatic. NECK: No JVD. CARDIOVASCULAR: Systolic ejection murmur at the lower left sternal border. Positive S3 gallop. LUNGS: Minimal crackles at the bases. No rhonchi or wheezing this morning. EXTREMITIES: Less edema. No cyanosis, no clubbing. Calves are nontender to palpation. GI: Abdomen is soft, nontender, nondistended. Bowel sounds are positive. SKIN: Resolving rash-lower extremities. NEUROLOGIC: Exam limited at the present time. PERTINENT LABORATORY DATA: Chest x-ray was repeated on 12/20/2017 and reviewed. The chest x-ray shows further improvement with decreased infiltrates at the bases, and decreased pleural effusions. IMPRESSION: 1. Bibasilar pneumonia. 2. Advanced chronic obstructive pulmonary disease. 3. Acute congestive heart failure. 4. Rapid atrial fibrillation. 5. Coronary artery disease. PLAN: Patient appears comfortable this morning. She is not short of breath at rest. She does state to feeling much better overall. I did discuss the case with the night nurse at length. The night nurse stated that the patient had a very good night. In addition, I have instructed the night nurse to obtain room air oxygen saturations at rest and on ambulation. On physical exam, her bronchospasm continues to resolve. In addition, the alveolar-arterial gradient also continues to resolve. Oxygen saturation on nasal cannula is now 100%. I will continue with the current nebulizer treatments and inhaled steroids for now. I would continue with the treatment for congestive heart failure as per Cardiology. Input by Dr. Rai is noted. The patient remains on Lasix/afterload reduction. In addition, as above, the chest x-ray shows continued improvement. Clinical status of the patient is significantly improved. I will discuss the above with the attending physician. Venkat Serna MD MTDD
[2017-12-22] MEDS: Potassium Chloride 20 mEq ER Tab PO SCH ×2 (10:40→17:47)
--- NOTE | 2017-12-22 14:08 | PN ---
DATE: 12/22/2017 LOCATION: Room 327, bed 1. REASON FOR CONSULTATION AND FOLLOWUP: Shortness of breath, pleural effusion, atrial fibrillation, COPD, pneumonia. SUBJECTIVE: Patient sitting comfortably in chair without any cardiac symptoms like chest pain, shortness of breath, palpitation. Patient also getting physical therapy. PHYSICAL EXAMINATION VITAL SIGNS: Blood pressure 111/66, respirations 18, pulse 75, patient afebrile HEENT: Head is normocephalic. Eyes, pupils are normal. Conjunctivae normal. Nose and throat normal. NECK: JVP low. Carotids equal. THORAX: AP diameter normal. LUNGS: No rales. CARDIOVASCULAR: S1 and S2. ABDOMEN: Soft. No tenderness. No organomegaly. Bowel sounds normal. EXTREMITIES: No clubbing. No cyanosis. LABORATORY DATA: WBC 11.1, hemoglobin 12.9, hematocrit 40.1, platelets 278. Sodium 138, potassium 3.7, BUN 25, creatinine 1, random glucose 92. DIAGNOSES: Exacerbation of [id number] obstructive pulmonary disease, pneumonia, new-onset atrial fibrillation with rapid rate, bilateral pleural effusion, coronary artery disease, hypothyroidism, hypertension, deconditioning of body, pleural effusion. Chest x-ray on 12/20 showed improvement in the bilateral pleural effusion, only small pleural effusion on the left side is present. Patient has history of stent insertion in the past. PLAN: Patient on carvedilol 25 b.i.d., Diovan 320 daily, aspirin 81 daily, Eliquis 2.5 b.i.d., potassium 20 mEq b.i.d., Lasix 40 p.o. daily, atorvastatin 10 mg daily, amlodipine 5 mg daily, Pepcid 20 mg b.i.d., Protonix 40 daily, levothyroxine 125 mcg daily. Patient getting physical therapy. We will continue present therapy. We will follow with you. Tomasz Palma MD
--- NOTE | 2017-12-22 23:38 | CP.PCM.PN ---
Subjective - Date & Time of Evaluation Date of Evaluation: 12/22/17 Time of Evaluation: 19:00 - Subjective Subjective: comfortable in chair. shortness of breath improved. On O2 by NC. No chest pain. No fever. Objective - Vital Signs/Intake and Output Vital Signs (last 24 hours): Temp Pulse Resp BP Pulse Ox 97.1 F L 80 16 93/65 L 97 12/22/17 16:00 12/22/17 17:45 12/22/17 16:00 12/22/17 17:45 12/22/17 17:14 - Medications Medications: Current Medications Amlodipine Besylate (Norvasc) 5 mg PO DAILY [facility] Last Admin: 12/22/17 10:41 Dose: Not Given Apixaban (Eliquis) 2.5 mg PO BID SANDRA PRN Reason: Protocol Last Admin: 12/22/17 17:47 Dose: 2.5 mg Aspirin (Ecotrin) 81 mg PO 0800 SANDRA PRN Reason: Protocol Last Admin: 12/22/17 08:05 Dose: 81 mg Atorvastatin Calcium (Lipitor) 10 mg PO DIN SANDRA PRN Reason: Protocol Last Admin: 12/22/17 17:46 Dose: 10 mg Budesonide (Pulmicort Respules) 0.5 mg IH [id number] SANDRA PRN Reason: Protocol Last Admin: 12/22/17 20:07 Dose: 0.5 mg Carvedilol (Coreg) 25 mg PO 0800,1800 SANDRA PRN Reason: Protocol Last Admin: 12/22/17 17:45 Dose: Not Given Famotidine (Pepcid) 20 mg PO 1000,2200 SANDRA PRN Reason: Protocol Last Admin: 12/22/17 21:24 Dose: 20 mg Furosemide (Lasix) 40 mg PO DAILY [facility] Last Admin: 12/22/17 14:28 Dose: 40 mg Ipratropium Jackson (Atrovent) 0.5 mg IH TIDRESP SANDRA PRN Reason: Protocol Last Admin: 12/22/17 20:07 Dose: 0.5 mg Levalbuterol HCl (Xopenex) 0.63 mg IH TIDRESP SANDRA PRN Reason: Protocol Last Admin: 12/22/17 20:07 Dose: 0.63 mg Levothyroxine Sodium (Synthroid) 125 mcg PO 0600 SANDRA PRN Reason: Protocol Last Admin: 12/22/17 05:16 Dose: 125 mcg Pantoprazole Sodium (Protonix Ec Tab) 40 mg PO 0600 SANDRA PRN Reason: Protocol Last Admin: 12/22/17 05:16 Dose: 40 mg Potassium Chloride (K-Dur 20 Meq Er Tab) 20 meq PO BID [facility] Last Admin: 12/22/17 17:47 Dose: 20 meq Valsartan (Diovan) 320 mg PO DAILY SANDRA PRN Reason: Protocol Last Admin: 12/22/17 10:39 Dose: Not Given - Labs Labs: 12/20/17 07:00 12/20/17 06:30 - Constitutional Appears: Chronically Ill - Head Exam Head Exam: ATRAUMATIC, NORMAL INSPECTION, NORMOCEPHALIC - Eye Exam Eye Exam: Normal appearance - ENT Exam ENT Exam: Mucous Membranes Moist - Neck Exam Neck Exam: Normal Inspection - Respiratory Exam Respiratory Exam: Clear to Ausculation Bilateral, NORMAL BREATHING PATTERN - Cardiovascular Exam Cardiovascular Exam: REGULAR RHYTHM, +S1, +S2 - GI/Abdominal Exam GI & Abdominal Exam: Soft, Normal Bowel Sounds - Extremities Exam Extremities Exam: Normal Inspection - Back Exam Back Exam: NORMAL INSPECTION - Neurological Exam Neurological Exam: Alert, Awake, Oriented x3 - Skin Skin Exam: Warm Assessment and Plan - Assessment and Plan (Free Text) Assessment: 1. CAP : on IV antibiotics as per ID. improving. 2. Leukocytosis : related to PNA, improving. 3. COPD : continue bronchodilators. home O2 as per Dr. Serna. 4. A-Fib : HR controlled with current meds. Cardiology following. 5. Continue PT for gait improvement. discharge planned for Friday
[2017-12-23] MEDS: Pantoprazole 40 mg EC Tab PO SCH (05:55)
[2017-12-23] MEDS: Levothyroxine 125 MCG TAB PO SCH (05:55)
[2017-12-23 07:09] VITALS: RESP 18
[2017-12-23] MEDS: Levalbuterol 0.63 MG/3 ML Inhal Soln UD IH SCH ×3 (07:21→21:10)
[2017-12-23] MEDS: Ipratropium 0.02% Inhal Soln (0.5 mg/2.5 ml) UD IH SCH ×3 (07:21→21:10)
[2017-12-23] MEDS: Budesonide 0.5 mg/2 ml Inhal Susp UD IH SCH ×2 (07:21→21:10)
--- NOTE | 2017-12-23 07:38 | PN ---
DATE: 12/23/2017 PULMONARY NOTE SUBJECTIVE: The patient appears comfortable this morning. She is not short of breath at rest. PHYSICAL EXAMINATION: VITAL SIGNS: Temperature is 97.1, pulse 80, respirations 16, last blood pressure recorded is 93/65. Oxygen saturation on nasal cannula is 97%. HEENT: Normocephalic, atraumatic. NECK: No JVD. CARDIOVASCULAR: Systolic ejection murmur at the lower left sternal border. Positive S3 gallop. LUNGS: Minimal/less crackles at the bases. No rhonchi. No wheezing. EXTREMITIES: Less edema. No cyanosis. No clubbing. Calves are nontender to palpation. GI: Abdomen is soft, nontender, nondistended. Bowel sounds are positive. SKIN: Resolving rash-lower extremities. NEUROLOGIC: Exam limited at the present time. IMPRESSION: 1. Bibasilar pneumonia. 2. Advanced chronic obstructive pulmonary disease. 3. Acute congestive heart failure. 4. Rapid atrial fibrillation. 5. Coronary artery disease. PLAN: The patient appears comfortable this morning. She is not short of breath at rest. She does state to feeling much better overall. I did discuss the case with a night nurse at length. The night nurse stated that the patient had a very good night. I will also check with Physical Therapy this morning, to inquire whether the patient needs home oxygen or not. On physical exam, her bronchospasm continues to resolve. In addition, there is no significant alveolar-arterial gradient. I will continue with the current nebulizer treatments and inhaled steroids for now. Patient remains off antibiotic therapy. There are no temperatures noted. The leukocytosis has basically resolved. I would continue with the treatment for congestive heart failure as per Cardiology. The patient remains on Lasix. The patient also remains on Eliquis. Clinical status of the patient is significantly improved overall. I will discuss the above with Dr. Corona. Venkat Serna MD MTDD
[2017-12-23] MEDS: Potassium Chloride 20 mEq ER Tab PO SCH ×2 (11:04→18:22)
--- NOTE | 2017-12-23 11:40 | CP.PCM.PN ---
Subjective - Date & Time of Evaluation Date of Evaluation: 12/23/17 Time of Evaluation: 11:10 - Subjective Subjective: Comfortably sitting on a chair, no SOB at rest, no cough, no pruritus. Objective - Vital Signs/Intake and Output Vital Signs (last 24 hours): Temp Pulse Resp BP Pulse Ox 97.1 F L 80 16 93/65 L 97 12/22/17 16:00 12/22/17 17:45 12/22/17 16:00 12/22/17 17:45 12/22/17 17:14 - Medications Medications: Current Medications Amlodipine Besylate (Norvasc) 5 mg PO DAILY [facility] Last Admin: 12/22/17 10:41 Dose: Not Given Apixaban (Eliquis) 2.5 mg PO BID SANDRA PRN Reason: Protocol Last Admin: 12/22/17 17:47 Dose: 2.5 mg Aspirin (Ecotrin) 81 mg PO 0800 SANDRA PRN Reason: Protocol Last Admin: 12/22/17 08:05 Dose: 81 mg Atorvastatin Calcium (Lipitor) 10 mg PO DIN SANDRA PRN Reason: Protocol Last Admin: 12/22/17 17:46 Dose: 10 mg Budesonide (Pulmicort Respules) 0.5 mg IH [id number] SANDRA PRN Reason: Protocol Last Admin: 12/22/17 20:07 Dose: 0.5 mg Carvedilol (Coreg) 25 mg PO 0800,1800 SANDRA PRN Reason: Protocol Last Admin: 12/22/17 17:45 Dose: Not Given Famotidine (Pepcid) 20 mg PO 1000,2200 SANDRA PRN Reason: Protocol Last Admin: 12/22/17 21:24 Dose: 20 mg Furosemide (Lasix) 40 mg PO DAILY [facility] Last Admin: 12/22/17 14:28 Dose: 40 mg Ipratropium [place] (Atrovent) 0.5 mg IH TIDRESP SANDRA PRN Reason: Protocol Last Admin: 12/22/17 20:07 Dose: 0.5 mg Levalbuterol HCl (Xopenex) 0.63 mg IH TIDRESP SANDRA PRN Reason: Protocol Last Admin: 12/22/17 20:07 Dose: 0.63 mg Levothyroxine Sodium (Synthroid) 125 mcg PO 0600 SANDRA PRN Reason: Protocol Last Admin: 12/23/17 05:55 Dose: 125 mcg Pantoprazole Sodium (Protonix Ec Tab) 40 mg PO 0600 SANDRA PRN Reason: Protocol Last Admin: 12/23/17 05:55 Dose: 40 mg Potassium Chloride (K-Dur 20 Meq Er Tab) 20 meq PO BID [facility] Last Admin: 12/22/17 17:47 Dose: 20 meq Valsartan (Diovan) 320 mg PO DAILY SANDRA PRN Reason: Protocol Last Admin: 12/22/17 10:39 Dose: Not Given - Labs Labs: 12/20/17 07:00 12/20/17 06:30 - Constitutional Appears: Non-toxic, Chronically Ill - Head Exam Head Exam: NORMAL INSPECTION - ENT Exam ENT Exam: Mucous Membranes Moist - Neck Exam Neck Exam: absent: Meningismus - Respiratory Exam Respiratory Exam: Decreased Breath Sounds - Cardiovascular Exam Cardiovascular Exam: +S1, +S2 - GI/Abdominal Exam GI & Abdominal Exam: Soft. absent: Tenderness - Extremities Exam Additional comments: rash on both lower extremities are fading Assessment and Plan - Assessment and Plan (Free Text) Plan: Assessment Sepsis due to bacterial community-acquired pneumonia, clinically improved and S/ P treatment with antibiotics non-blanching confluent macular rash on both lower extremities, clinically improving, R/O drug-induced CAD S/P PCI hypothyroidism COPD Plan will continue to monitor clinically off antibiotics since she is at risk for hospital-acquired infections will continue to monitor rash clinically - asymptomatic, slowly fading, no treatment for now
[2017-12-24] MEDS: Pantoprazole 40 mg EC Tab PO SCH (05:17)
[2017-12-24] MEDS: Levothyroxine 125 MCG TAB PO SCH (05:17)
[2017-12-24 06:33] VITALS: TEMP 97.6; O2SAT 97
[2017-12-24] MEDS: Budesonide 0.5 mg/2 ml Inhal Susp UD IH SCH (07:37)
[2017-12-24] MEDS: Ipratropium 0.02% Inhal Soln (0.5 mg/2.5 ml) UD IH SCH ×2 (07:37→13:31)
[2017-12-24] MEDS: Levalbuterol 0.63 MG/3 ML Inhal Soln UD IH SCH ×2 (07:38→13:32)
[2017-12-24] MEDS: Potassium Chloride 20 mEq ER Tab PO SCH ×3 (07:56→17:46)
--- NOTE | 2017-12-24 08:22 | PN ---
DATE: 12/24/2017 PULMONARY NOTE SUBJECTIVE: The patient appears comfortable this morning. She is not short of breath at rest. PHYSICAL EXAMINATION VITAL SIGNS: Temperature is 97.6, pulse is 77, respirations 18, blood pressure 108/73. Oxygen saturation on nasal cannula is 97%-100%. HEENT: Normocephalic, atraumatic. No JVD. CARDIOVASCULAR: Systolic ejection murmur at the lower left sternal border. Positive S3 gallop. LUNGS: Minimal/less crackles at the bases. No rhonchi. No wheezing. EXTREMITIES: Less edema. No cyanosis, no clubbing. Calves are nontender to palpation. GI: Abdomen is soft, nontender and nondistended. Bowel sounds are positive. SKIN: Resolving rash - lower extremities. NEUROLOGIC: Limited at the present time. IMPRESSION: 1. Bibasilar pneumonia. 2. Advanced chronic obstructive pulmonary disease. 3. Acute congestive heart failure. 4. Rapid atrial fibrillation. 5. Coronary artery disease. PLAN: The patient appears comfortable this morning. She is not short of breath at rest. She does state to feeling much, much better overall. I did discuss the case with the night nurse at length. The night nurse stated that the patient had a very good night. On physical exam, her bronchospasm continues to resolve. In addition, the oxygen saturation on nasal cannula is 97%-100%. I did meet with the physical therapist yesterday. Home oxygen has been arranged. I will continue the current pulmonary medications and inhaled steroids for now. The patient remains off antibiotic therapy. Input by Dr. Maurice is noted. There are no temperatures noted. I would continue with the treatment for congestive heart failure as per Cardiology. Input by Dr. Palma is noted. Clinical status of the patient is significantly improved overall. I will discuss the above with the attending physician. Venkat Serna MD MTDD
[2017-12-24 10:03] VITALS: PULSE 86
--- NOTE | 2017-12-24 11:52 | PN ---
DATE: 12/24/2017 LOCATION: The patient is in room 327, bed 1. REASON FOR CONSULTATION: Followup shortness of breath, pleural effusion, atrial fibrillation, COPD, pneumonia. SUBJECTIVE: The patient denies any chest pain, shortness of breath or palpitations. The patient is getting physical therapy without any cardiac symptoms. PHYSICAL EXAMINATION: VITAL SIGNS: Blood pressure 108/73, respirations 18, pulse 77, temperature 97.6. HEENT: Head is normocephalic. Eyes: Pupils normal. Conjunctivae normal. Nose and throat normal NECK: JVP low. Carotids equal. THORAX: AP diameter normal. LUNGS: No significant rales. CARDIOVASCULAR: S1 and S2. Regular rhythm with atrial fibrillation. ABDOMEN: Soft, no tenderness, no organomegaly. EXTREMITIES: No clubbing. No cyanosis. LABORATORY DATA: WBC 11.1, hemoglobin 12.9, hematocrit 40.1, platelet 278. Sodium 138, potassium 3.7, BUN 25, creatinine 1. DIAGNOSES: Exacerbation of chronic obstructive pulmonary disease, pneumonia, new onset of atrial fibrillation with rapid rate, bilateral pleural effusion, coronary artery disease, hypothyroidism, hypertension, deconditioning, history of stent insertion versus coronary artery disease in the past. MEDICATIONS: The patient on carvedilol 25 mg b.i.d., valsartan 320 mg p.o. daily, aspirin 81 daily, Eliquis 2.5 mg p.o. b.i.d., furosemide 40 p.o. daily, atorvastatin 10 mg daily, amlodipine 5 daily, Protonix 40 daily, levothyroxine 125 mcg p.o. daily. 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 Tomasz Palma MD
[2017-12-24 17:50] VITALS: BP 121/74
--- NOTE | 2017-12-24 22:58 | DS ---
DISCHARGE DIAGNOSES: 1. Bibasilar pneumonia. 2. Chronic obstructive pulmonary disease, advanced. 3. Congestive cardiac failure. 4. Atrial fibrillation. 5. Coronary artery disease. 6. Chronic anemia, leukocytosis. HOSPITAL COURSE: Patient was admitted to regular floor with bibasilar pneumonia. She was hypoxic, treated with IV antibiotics, received oxygen during hospitalization. She has been discharged on home oxygen, evaluated by specialist Cardiology Pulmonary, Dr. Serna. CONDITION: Currently, stable. PHYSICAL EXAMINATION ON DISCHARGE: VITAL SIGNS: Temperature 98.7, heart rate 80 per minute, blood pressure 120/70, pulse ox is 80% on oxygen by nasal cannula. HEENT: Normal. Mucosa pale. CARDIOVASCULAR: S1 and S2 normal. No murmur, no gallop. ABDOMEN: Soft, nontender. No hepatosplenomegaly. LUNGS: Clear to auscultation bilaterally. No added sounds. EXTREMITIES: No edema. NEUROLOGIC: Alert and oriented x3. No focal sensory or motor deficits. CONDITION ON DISCHARGE: Stable. DISPOSITION: Discharged home. DIET: As tolerated. FOLLOWUP: Follow up with in one week. Follow up with Dr. Serna in one week. HOME MEDICATIONS: Norvasc 5 mg daily, Eliquis 2.5 mg b.i.d., aspirin 81 mg daily, Lipitor mg daily, Pulmicort, Coreg 25 mg p.o. b.i.d., Pepcid 20 mg daily, Xopenex inhalation, Protonix 40 mg daily, Diovan 320 mg daily. CONDITION ON DISCHARGE: Stable. DISPOSITION: Discharged home. All prescriptions were given to the patient. Discussed with the staff nurse. Time spent in preparing discharge and coordinating care, 50 minutes. Jane Corona MD
== END 2017-12-24 19:08 | disposition home or self-care (01) | DRG 194 ==
LOC: TRCU 16:48
PROVIDERS: ADMIT Internal Medicine Medical Oncology; ATTEND Internal Medicine Medical Oncology
PROC: 3E03328 Introduction of Oxazolidinones into Peripheral Vein, Percutaneous Approach (ICD-10-PCS; 2017-12-17)
PROC: F07Z9FZ Gait Training/Functional Ambulation Treatment using Assistive, Adaptive, Supportive or Protective Equipment (ICD-10-PCS; principal; 2017-12-18)
PROC: F07L6YZ Therapeutic Exercise Treatment of Musculoskeletal System - Lower Back / Lower Extremity using Other Equipment (ICD-10-PCS; 2017-12-18)
PROC: F07Z8FZ Transfer Training Treatment using Assistive, Adaptive, Supportive or Protective Equipment (ICD-10-PCS; 2017-12-20)
PROC: F08Z2ZZ Grooming/Personal Hygiene Treatment (ICD-10-PCS; 2017-12-22)
DX: J18.9 Pneumonia, unspecified organism (principal); J44.0 Chronic obstructive pulmonary disease with (acute) lower respiratory infection; J44.1 Chronic obstructive pulmonary disease with (acute) exacerbation; I50.9 Heart failure, unspecified; I11.0 Hypertensive heart disease with heart failure; I48.91 Unspecified atrial fibrillation; I25.10 Atherosclerotic heart disease of native coronary artery without angina pectoris; D64.9 Anemia, unspecified; R21 Rash and other nonspecific skin eruption; E03.9 Hypothyroidism, unspecified; Z95.5 Presence of coronary angioplasty implant and graft; Z79.2 Long term (current) use of antibiotics; Z79.01 Long term (current) use of anticoagulants; Z99.81 Dependence on supplemental oxygen